=== PATIENT | female | born 1995 | race Caucasian/White ===

== ENCOUNTER 2023-07-11 14:14 | Outpatient (CLI) | payer OTHER, SELFPAY | END 2023-07-11 14:15 | disposition home or self-care (01) | LOC: NFLDUCREF 14:15 | PROVIDERS: Visit Provider Nurse Practitioner | DX: M54.50 Low back pain, unspecified (principal) | CPT/HCPCS: 85651 ==

== ENCOUNTER 2023-08-31 10:00 | Outpatient (RCR) | payer OTHER, SELFPAY ==
--- NOTE | 2023-07-25 11:15 | PT.OPEX ---
PT [place] [facility] Eval PT [facility] Out[facility] Eval Start: 07/25/23 09:56 Freq: Status: Active Protocol: Document 07/25/23 09:57 CRP (Rec: 07/25/23 11:12 CRP [id number]) E-signed By David Chambers PT Physical Therapy Outpatient Evaluation Insurance Information Insurance Name [facility] Medical Diagnosis Back Pain Referring MD Janice Ordoñez AIR ANALYSIS ENGINEERING TECHNICIAN Subjective Subjective 2-3 weeks had a back flare. Was working out and doing a lot of twisting and bending. After workout L lower back strain. Got worse and the next day was shifted. Thinks she was shifted to the R. No LE pain. Pain was very localized at the L lower back. Had one other episode about a year ago. Also after working out. Last time she felt shifted was over a week ago. When bad standing was the worse. Sitting was the best. No numbness or tingling . Sleep is affected. Is normally a side sleeper and this does feel a little more aggravated. On back is better but she cannot stay there. Almost no pain now. Pain Comments 07/13 Current Work Status Patient Registration Rep Preferred Name Velvet Objective Range of Motion Trunk ROM FLex WNL - reverse rhythm on coming back to neutral Ext mod dec R SB min dec L SB min/mod dec Hip ROM shows mild restriction R ER. All other testing WNL. Strength L grt toe 4/5. L hip abd 4+/5. All other myotome testing 5/ 5. Palpation Increased L sided lumbar erector spinae tone noted. Posture Mildly flattened lumbar lordosis in standing and sitting Other/Pertinent Objective SLR testing negative bilat Quadruped testing shows mild restriction into controlled lumbar ext. Does not get to full ROM. Assessment Assessment/Impression Pt presents to the clinic with a recent lumbar strain injury related to repetitive rotation and flexion. Pt shows ongoing lumbar dysfunction with loss of lumbar extension and L SB. With this she shows some signs of neural irritability and poor lumbopelvic control. Skilled PT is necessary to safely incorporate ther ex, nm kae, ther act and pt education to decrease pain and improve functional mobility. Primary Functional Limitations Exercise Bending Lifting Plan of Care Rehabilitation Potential Excellent Physical Therapy Goals 1. Pt will be 100% independent with HEP in 6 weeks. 2. Pt will complete all household tasks without pain in 8 weeks. 3. Pt will sleep through the night without c/o in 8 weeks. 4. Pt will return to full workout without c.o in 12 weeks. Coordination/Communication With Referral Source Treatment Plan/Direct Interventions Self-Care/Home Management, Therapeutic Activities, Therapeutic Exercises Frequency/Duration 1x/wk down to PRN x 12 weeks Patient Will Be Discharged From Therapy Completion of LTG(s),Skills Plateau,Independent w/HEP, Independently Progressing Evaluation Billing Untimed Code Treatment Minutes 30 Complexity Moderate Certification Information Physician Comment/Change : Physician NPI Number #
== END 2023-12-29 23:59 | disposition home or self-care (01) ==
PROVIDERS: PCP Nurse Practitioner; Visit Provider Nurse Practitioner
DX: M54.9 Dorsalgia, unspecified (principal); Z51.89 Encounter for other specified aftercare
CPT/HCPCS: 97110; 97140; 97162

== ENCOUNTER 2024-03-05 11:13 | Outpatient (CLI) | payer OTHER, SELFPAY | END 2024-03-05 11:14 | disposition home or self-care (01) | LOC: NFLDREF 16:54 | PROVIDERS: PCP Nurse Practitioner; Referring Provider Nurse Practitioner; Visit Provider Nurse Practitioner Family | DX: Z32.01 Encounter for pregnancy test, result positive (principal) | CPT/HCPCS: 84702 ==

== ENCOUNTER 2024-03-28 07:00 | Outpatient (CLI) | payer OTHER, SELFPAY ==
--- NOTE | 2024-03-28 07:15 | CRLHL7_ITS ---
For Patients: As a result of the Century Cures Act, medical imaging exams and procedure reports are released immediately into your electronic medical record. You may view this report before your referring provider. If you have questions, please contact your health care provider. INDICATION: First trimester dating and viability. TECHNIQUE: Ultrasound OB pelvis transabdominal and transvaginal. Real-time mcfadden-scale imaging of the pelvis was performed. COMPARISON: None. FINDINGS: Intrauterine gestation: Single. heart activity (bpm): 171. [place]-rump length: 1.5 cm. Estimated ultrasound age: 8 weeks 0 days. TIFFANIE by ultrasound: 11/07/2024. Yolk sac: Normal. Perigestational hemorrhage: None. Ovaries and adnexa: Unremarkable. Suspicious pelvic fluid collections: None. IMPRESSION: [place] intrauterine with cardiac activity. Estimated gestational age 8 weeks 0 days by LMP concordant with CRL. Normal ovaries. Dictated by Kaylee Kent MD @ 03/29/2024 7:59:42 AM (Electronically Signed)
== END 2024-03-28 07:01 | disposition home or self-care (01) ==
LOC: US 07:01
PROVIDERS: PCP Physician Assistant; Visit Provider Physician Assistant
DX: Z34.91 Encounter for supervision of normal pregnancy, unspecified, first trimester (principal); Z3A.08 8 weeks gestation of pregnancy
CPT/HCPCS: 76817

== ENCOUNTER 2024-03-28 08:49 | Outpatient (CLI) | payer OTHER, SELFPAY | END 2024-03-28 08:50 | disposition home or self-care (01) | PROVIDERS: PCP Physician Assistant; Visit Provider Registered Nurse | DX: Z34.91 Encounter for supervision of normal pregnancy, unspecified, first trimester (principal); Z3A.08 8 weeks gestation of pregnancy | CPT/HCPCS: 82565; 82570; 84156; 84450; 84460; 84520; 86592; 86703; 86704; 86706; 86762; 86787; 86803; 86850; 86900; 86901; 87086; 87340 ==

== ENCOUNTER 2024-04-02 11:16 | Outpatient (CLI) | payer OTHER, SELFPAY | END 2024-04-02 11:17 | disposition home or self-care (01) | LOC: NFLDREF 04-04 14:26 | PROVIDERS: PCP Physician Assistant; Referring Provider Physician Assistant; Visit Provider Registered Nurse | DX: O16.1 Unspecified maternal hypertension, first trimester (principal) | CPT/HCPCS: 82570; 84156 ==

== ENCOUNTER 2024-05-06 14:43 | Inpatient (IN) | payer OTHER, SELFPAY ==
[2024-05-06] VITALS (27 sets, daily range): BP systolic 113–154; BP diastolic 57–84; PULSE 80–142; RESP 14–20; TEMP 36.6–37.3; O2SAT 94–100; BMI 23.8
--- NOTE | 2024-05-06 15:08 | CRLHL7_ITS ---
For Patients: As a result of the Century Cures Act, medical imaging exams and procedure reports are released immediately into your electronic medical record. You may view this report before your referring provider. If you have questions, please contact your health care provider. INDICATION: Evaluate anatomy. COMPARISON: Obstetric ultrasound report from 03/29/2024 TECHNIQUE: First trimester obstetric ultrasound, transabdominal approach, utilizing grayscale and color Doppler as needed. FINDINGS: Sonographic imaging demonstrates a single living intrauterine gestation. The crown-rump length measures 8.5 centimeters consistent with a 14 week and 3 day gestation with estimated delivery date of 11/01/2024. The fetus has a regular cardiac rate of 173 beats per minute. The fetus has a cephalic orientation. Posterior fundal placenta without evidence of placenta previa or abruption. Minimal amniotic fluid. The head is at the level of the internal cervical os/just within the endocervical canal; however, the cervix is not fully open. The bilateral ovaries are not visualized. No suspicious adnexal lesions. No free fluid. IMPRESSION: 1. Single living intrauterine gestation in cephalic position with heart rate 173. 2. Ultrasound gestational age 14 weeks and 3 days with sonographic due date 11/01/2024. 3. The head is at the level of the internal cervical os/just within the endocervical canal; however, the cervix is not fully open. Findings are concerning for threatened miscarriage. Preliminary report was provided by the patient`s fiber optic central office installer to Drs. Apple and Farrukh at 1630 hours on 05/06/2024. Dictated by Palomo Muller MD @ 05/06/2024 5:06:18 PM (Electronically Signed)
--- NOTE | 2024-05-06 15:15 | ED.GENADULT ---
HPI - General Adult General Date Seen: 05/06/24 Chief complaint: OB/Uterine Contractions Stated complaint: , spotting and cramping and fever Time Seen by Provider: 05/06/24 14:54 Source: patient and RN notes reviewed Mode of arrival: ambulatory Limitations: no limitations History of Present Illness HPI narrative: Patient is a 29-year-old , 13 weeks 5 days by prior ultrasound, who says for the past several days she has been having some pelvic cramping associated with light spotting which has been pinkish to brownish. Today, she developed a fever up to 101, she says that the abdominal pain actually stopped a couple of hours ago when the fever started, but she noted that she was significantly tachycardic at home. She works as a PA in [employer], says she had access to a Doppler so she took that home and has been checking on baby's heart rate which has been present but was tachycardic this afternoon as well. She denies urinary symptoms, vomiting, diarrhea, cough, sore throat or other respiratory symptoms. has, prior to this, been uneventful. Denies other medical history or medications aside from vitamins. No substances. Related Data Home Medications ?Medication ?Instructions ?Recorded ?Confirmed docosahexaenoic acid 200 mg mg PO 03/28/24 04/25/24 capsule ( DHA) 05/06/24 Allergies Allergy/AdvReac Type Severity Reaction Status Date / Time Sulfa (Sulfonamide Allergy Verified 04/25/24 08:54 Antibiotics) Review of Systems Status of ROS: Reports: 10 or more systems reviewed and unremarkable except as noted in History and below [facility] Medical History History of abnormal cervical Pap smear ?Z87.42 - Personal history of other diseases of the female genital tract (ICD-10) Social History Narrative: 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 What is your current living situation?: I presently have a place to live Problems where you live: no known problems In the past 12 months, utilities in danger of being shut off: no In past 12 months, lack of transportation kept you from medical appts, meetings, work, or getting things needed for daily living: no In the past 12 mos, have been you worried that your food would run out before you had money to buy more?: never true In the past 12 mos, the food you bought just didn't last and you didn't have money to buy more?: never true How often does anyone, including family, friends and others, physically hurt you: never How often does anyone, including family, friends and others, insult or talk down to you: never How often does anyone, including family, friends and others, threaten you with harm: never How often does anyone, including family, friends and others, scream or curse at you: never Little interest or pleasure in doing things: not at all Feeling down, depressed, or hopeless: not at all Exam Narrative: Exam Narrative: Vital signs as noted above. In general, an alert, well-appearing patient. Head: Normocephalic, atraumatic. Eyes: Pupils are equal reactive. Extraocular movements are full. Conjunctivae are normal. ENT: Mucous membranes are moist. Throat is normal. Neck: Supple without lymphadenopathy. Heart: Regular rate and rhythm. No murmur or rub. Lungs: Clear bilaterally. No increased work of breathing, crackles or wheezes. Abdomen: Soft, gravid. Some pelvic tenderness is noted, no rebound guarding or rigidity. Pelvic exam is deferred. Extremities: Well perfused. No edema. No calf tenderness. Pulses intact. Neurologic: Patient is alert and oriented to person and place. Speech is fluent. Face is symmetric. Moves all extremities equally. Affect: Normal. Skin: Warm and dry. Well perfused. Const: Vital Signs, click to edit/add: Vital Signs - 24 hr 05/06/24 14:47 05/06/24 16:57 Temperature 98.7 F Pulse Rate 133 H Pulse Rate [Pulse Oximeter] 141 H Respiratory Rate 20 Blood Pressure [Ri ght Upper Arm] 154/84 H Pulse Oximetry 98 98 Oxygen Delivery Me thod Room Air Documenting provider has reviewed patient's vital signs: yes Course Course ED Course: Patient remains tachycardic here, will do an EKG just to confirm that this is sinus tachycardia. Her blood pressure is elevated but she says that is always elevated when she is at a healthcare facility, but normal at home. She attributes this to anxiety. Will check a viral swab, but given her recent pelvic pain and spotting, I think it is reasonable to do some blood work as well and look for other causes for her fever such as urinary tract infection, uterine infection, etc. as well as give some IV fluids. I have also ordered a formal ultrasound to evaluate for possible causes of cramping and spotting. Initial evaluation here revealed an elevated white blood cell count 19.4 with 92% neutrophils. Her sodium is 132, potassium is 2.9. Remainder of the metabolic panel is normal. Lactate is normal at 1.6, procalcitonin elevated at 1.9 and CRP is 13.6. UA notable for 1+ blood trace leukocytes, 2-5 red cells and 5-10 white blood cells. Viral swab is negative. A bit after initial evaluation, patient had a myers of fluid loss while lying in bed, she said she felt like she was urinating but knew that she was not. I did not see this in person, was reported that it was pinkish watery fluid, fairly large amount. I looked with a bedside ultrasound as formal ultrasound was still pending at that time. There appeared to be fairly minimal amount of amniotic fluid, cardiac activity was seen however. I then discussed her care with Dr. Chadwick, and at her recommendation did a sterile speculum exam. She had a moderate amount of cloudy fluid pooling in the vaginal vault, fern test which I did myself was positive for amniotic fluid. Formal ultrasound pre limb notes positive cardiac activity but head of the baby is down near or just into the cervix, and there is minimal amniotic fluid. I have discussed all this with the patient and her , have discussed this is nonviable at this time, and she is showing signs of systemic infection. Dr. Chadwick will come in and evaluate her as well, likely emergent D and C. has super notified. In the meantime, I have sent a culture of the amniotic fluid, blood cultures will be drawn and I would have ordered Zosyn for her. I have also ordered IV potassium replacement, and additional IV fluids. Vital Signs Vital signs: Initial Vital Signs Temperature 98.7 F 05/06/24 14:47 Temperature Source Temporal Artery Scan 05/06/24 14:47 Pulse Rate 141 H 05/06/24 14:47 Pulse Rhythm Regular 05/06/24 14:47 Respiratory Rate 20 05/06/24 14:47 Blood Pressure 154/84 H 05/06/24 14:47 Blood Pressure Mean 107 H 05/06/24 14:47 Blood Pressure Position Sitting 05/06/24 14:47 Pulse Oximetry 98 05/06/24 14:47 Oxygen Delivery Method Room Air 05/06/24 14:47 Vital Signs Temperature 98.7 F 05/06/24 14:47 Pulse Rate 141 H 05/06/24 14:47 Respiratory Rate 20 05/06/24 14:47 Blood Pressure 154/84 H 05/06/24 14:47 Pulse Oximetry 98 05/06/24 14:47 Oxygen Delivery Method Room Air 05/06/24 14:47 Temperature 98.7 F 05/06/24 14:47 Pulse Rate 133 H 05/06/24 16:57 Respiratory Rate 20 05/06/24 14:47 Blood Pressure 154/84 H 05/06/24 14:47 Pulse Oximetry 98 05/06/24 16:57 Oxygen Delivery Method Room Air 05/06/24 14:47 Medications Administered Medications: Discontinued Medications Generic Name Dose Route Start Last Admin Trade Name Sanketq PRN Reason Stop Dose Admin Sodium Chloride 500 mls @ 500 mls/hr 05/06/24 15:07 05/06/24 16:54 0.9 % Sodium Chloride 500 Ml IV 05/06/24 16:06 Infused .Q1H ONE Infusion Medical Decision Making Lab Data Labs: Lab Results 05/06/24 05/06/24 Range/Units 15:17 15:20 WBC 19.42 H (4.50-11.00) K/uL RBC 4.23 (4.00-5.20) m/uL Hgb 13.3 (12.0-16.0) gm/dL Hct 37.9 (33.0-51.0) % MCV 90 (80-100) fL MCH 31 (26-34) pg MCHC 35 (32-36) gm/dL RDW Coeff of Marco A 11.7 (11.5-15.5) % Plt Count 176 (140-440) K/uL Neut % (Auto) 92.1 H (42.0-72.0) % Lymph % (Auto) 2.8 L (20-44) % [place] % (Auto) 4.1 (0.0-11.0) % Eos % (Auto) 0.1 (0.0-7.0) % Baso % (Auto) 0.1 (0.0-3.0) % Neut # (Auto) 17.90 H (1.7-7.0) K/uL Lymph # (Auto) 0.50 L (0.90-2.90) K/uL [place] # (Auto) 0.80 (0.00-0.90) K/UL Eos # (Auto) 0.00 (0.00-0.50) K/uL Baso # (Auto) 0.00 (0.00-0.30) K/uL Abs Immat Gran (auto) 0.20 (0.00-0.30) K/uL Imm/Tot Granulo (auto) 0.8 % Sodium 132 L (135-149) mmol/L Potassium 2.9 L* (3.6-5.1) mmol/L Chloride 103 (96-114) mmol/L Carbon Dioxide 20 (20-32) mmol/L Anion Gap 9 (7-15) mEq/L BUN 5 (5-24) mg/dL Creatinine 0.5 (0.5-1.5) mg/dL Estimated Creat Clear 150.73 Estimated GFR 131 ml/min Glucose 93 (60-115) mg/dL Lactate 1.6 (0.5-1.9) mmol/L Calcium 8.9 (8.4-10.6) mg/dL Total Bilirubin 1.0 (0.1-1.5) mg/dL Direct Bilirubin 0.2 (0.0-0.5) mg/dL AST 20 (12-35) U/L ALT 15 (4-35) U/L Alkaline Phosphatase 78 (40-150) U/L C-Reactive Protein 13.6 H (0.5-1.0) mg/dL Total Protein 6.9 (6.0-8.3) g/dL Albumin 4.1 (3.3-5.0) g/dL Procalcitonin 1.90 H (<0.50) ng/mL Urine Color Yellow (Yellow) Urine Appearance Clear (Clear) Urine pH 6.5 (5.0-8.5) Ur Specific [place] 1.010 (1.000-1.030) Urine Protein Negative (Negative) Urine Glucose (UA) Negative (Negative) Urine Ketones Negative (Negative) Urine Blood 1+ A (Negative) Urine Nitrite Negative (Negative) Urine Bilirubin Negative (Negative) Urine Urobilinogen 0.2 (0.2-1.0) Ur Leukocyte Esterase Trace A (Negative) Urine RBC 2-5 A (0-2) Urine WBC 5-10 A (0-5) Ur Squamous Epith Cells None (None-Few) Urine Bacteria None (None) SARS-CoV-2 (PCR) Negative SARS-CoV-2 (Negative) Influenza Type A (PCR) Negative PCR FLU A (Negative) Influenza Type B (PCR) Negative PCR FLU B (Negative) RSV (PCR) Negative PCR RSV (Negative) Discharge Plan Discharge Clinical Impression: Spontaneous with sepsis Condition: Unchanged Prescriptions: No Action DHA 200 mg capsule PO Follow Up/Referrals: Provider,Not a Local [Primary Care Provider] -
[2024-05-06 15:22] LABS: Lactate Sepsis w/Reflex* 1.6 mmol/L (0.5-1.9)
[2024-05-06 15:26] LABS: Basophils Percent Auto 0.1 % (0.0-3.0); Eosinophils Percent Auto 0.1 % (0.0-7.0); Hematocrit 37.9 % (33.0-51.0); Hemoglobin* 13.3 gm/dL (12.0-16.0); Immature Granulocytes Pct Auto 0.8 %; Lymphocytes Percent Auto 2.8 % (20-44); Mean Corpuscular HGB Conc 35 gm/dL (32-36); Mean Corpuscular Hemoglobin 31 pg (26-34); Mean Corpuscular Volume 90 fL (80-100); Monocytes Percent Auto 4.1 % (0.0-11.0); Neutrophils Percent Auto 92.1 % (42.0-72.0); Platelet Count* 176 K/uL (140-440); RDW Coefficient of Variation % 11.7 % (11.5-15.5); Red Blood Count 4.23 m/uL (4.00-5.20); White Blood Count* 19.42 K/uL (4.50-11.00)
[2024-05-06 15:29] LABS: Slide Review Reflex No
[2024-05-06] MEDS: 0.9 % SODIUM CHLORIDE 500 ML 500 ML IV ×2 (15:30→17:03)
[2024-05-06 15:32] LABS: Appearance Urine Clear (Clear); Bilirubin Urine Negative (Negative); Blood Urine 1+ (Negative); Color Urine Yellow (Yellow); Glucose Urine Negative (Negative); Ketones Urine Negative (Negative); Leukocyte Esterase Urine Trace (Negative); Nitrite Urine Negative (Negative); Protein Urine Negative (Negative); Urobilinogen Urine 0.2 (0.2-1.0); pH Urine 6.5 (5.0-8.5)
[2024-05-06 15:38] LABS: Albumin* 4.1 g/dL (3.3-5.0); Chloride* 103 mmol/L (96-114)
[2024-05-06 15:39] LABS: Sodium* 132 mmol/L (135-149)
[2024-05-06 15:41] LABS: Creatinine* 0.5 mg/dL (0.5-1.5); Est. Creatinine Clearance* 150.73; Estimated Glomerular Filt Rate 131 ml/min
[2024-05-06 15:42] LABS: Alanine Aminotransferase* 15 U/L (4-35); Alkaline Phosphatase* 78 U/L (40-150); Anion Gap 9 mEq/L (7-15); Aspartate Amino Transferase* 20 U/L (12-35); Bilirubin Direct* 0.2 mg/dL (0.0-0.5); Blood Urea Nitrogen* 5 mg/dL (5-24); Carbon Dioxide* 20 mmol/L (20-32); Glucose* 93 mg/dL (60-115); Total Protein* 6.9 g/dL (6.0-8.3)
[2024-05-06 15:43] LABS: Calcium* 8.9 mg/dL (8.4-10.6)
[2024-05-06 15:44] LABS: Potassium* 2.9 mmol/L (3.6-5.1)
[2024-05-06 15:59] LABS: C Reactive Protein* 13.6 mg/dL (0.5-1.0)
[2024-05-06 16:09] LABS: PCR FLU A Negative PCR FLU A (Negative); PCR FLU B Negative PCR FLU B (Negative); PCR RSV Negative PCR RSV (Negative); SARS PCR* Negative SARS-CoV-2 (Negative)
[2024-05-06] MEDS: POTASSIUM CHLORIDE 10 MEQ/100 ML PIGGYBACK 100 MEQ IVPB (17:02)
[2024-05-06] MEDS: PIPERACILLIN/TAZOBACTAM 3.375 GM in 0.9 % SODIUM CHLORIDE Mini-bag 100 ML IVPB ×2 (17:03→23:35)
--- NOTE | 2024-05-06 17:14 | PM.GYNCN1 ---
SUPERINTENDENT OIL FIELD DRILLING - CN: HPI Data of Consult Time Seen by Provider: 17:00 Date Seen: 05/06/24 Patient: [facility] Patient Consult date: 05/06/24 Requesting Physician: Dr. Apple Primary Care Provider: Not a Local Provider Consult Narrative Narrative: Velvet Zimmerman is a 29 year old female who is currently 13 4/7 weeks gestation. She presented to the emergency department this afternoon complaining of severe low abdominal cramping of two days duration associated with scant brown spotting, and then developed fever to 101? F and tachycardia this afternoon. She had been monitoring heart tones with a doptones, and had contacted me through the triage line twice since last evening. Following her arrival to the emergency department, she had two large gushes of fluid from the vagina. Sterile speculum examination revealed moderate amount of cloudy fluid pooling in the vaginal vault, and fern test done by Dr. Apple was positive for amniotic fluid. Pelvic ultrasound showed very little fluid around the fetus, with head just within the internal cervical os, consistent with miscarriage in process. Patient was found to have an elevated white blood cell count with left shift. 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. What is your current living situation?: I presently have a place to live Problems where you live: no known problems In the past 12 months, utilities in danger of being shut off: no In past 12 months, lack of transportation kept you from medical appts, meetings, work, or getting things needed for daily living: no In the past 12 mos, have been you worried that your food would run out before you had money to buy more?: never true In the past 12 mos, the food you bought just didn't last and you didn't have money to buy more?: never true How often does anyone, including family, friends and others, physically hurt you: never How often does anyone, including family, friends and others, insult or talk down to you: never How often does anyone, including family, friends and others, threaten you with harm: never How often does anyone, including family, friends and others, scream or curse at you: never Little interest or pleasure in doing things: not at all Feeling down, depressed, or hopeless: not at all Meds Home Medications and Allergies Home Medications ?Medication ?Instructions ?Recorded ?Confirmed ?Type docosahexaenoic acid 200 mg mg PO 03/28/24 04/25/24 History capsule ( DHA) 05/06/24 History Allergies Allergy/AdvReac Type Severity Reaction Status Date / Time Sulfa (Sulfonamide Allergy Verified 04/25/24 08:54 Antibiotics) SUPERINTENDENT OIL FIELD DRILLING - Exam Physical Exam: Vital signs: Temp Pulse Resp BP Pulse Ox O2 Del Method 98.7 F 133 H 20 154/84 H 98 Room Air 05/06/24 14:47 05/06/24 16:57 05/06/24 14:47 05/06/24 14:47 05/06/24 16:57 05/06/24 14:47 Constitutional: Constitutional: no acute distress Routine HEENT Exam: Head: Present normal inspection Routine Respiratory Exam: Respiratory: Present CTA bilaterally Routine Abdominal Exam: Abdominal: Present soft and tenderness (Mild mid low abdomen); Absent guarding or rebound Routine Extremities Exam: Extremities: Absent pedal edema or tenderness SUPERINTENDENT OIL FIELD DRILLING - Results Labs Labs: Short CBC 05/06/24 Range/Units 15:17 WBC 19.42 H (4.50-11.00) K/uL Hgb 13.3 (12.0-16.0) gm/dL Hct 37.9 (33.0-51.0) % Plt Count 176 (140-440) K/uL BMP 05/06/24 15:17 Sodium 132 L Potassium 2.9 L* Chloride 103 Carbon Dioxide 20 BUN 5 Creatinine 0.5 Glucose 93 Calcium 8.9 Liver Function 05/06/24 Range/Units 15:17 Total Bilirubin 1.0 (0.1-1.5) mg/dL Direct Bilirubin 0.2 (0.0-0.5) mg/dL AST 20 (12-35) U/L ALT 15 (4-35) U/L Alkaline Phosphatase 78 (40-150) U/L Albumin 4.1 (3.3-5.0) g/dL Urine 11/03/24 Range/Units 15:20 Urine Color Yellow (Yellow) Urine Appearance Clear (Clear) Urine pH 6.5 (5.0-8.5) Ur Specific [place] 1.010 (1.000-1.030) Urine Protein Negative (Negative) Urine Glucose (UA) Negative (Negative) Assessment and Plan Assessment and plan (1) Spontaneous with sepsis: Status: Acute Plan Unfortunately, at this time there is no hope of saving the fetus in the setting of septic . Miscarriage is already in process. Because there is evidence of intrauterine infection, uterine evacuation is indicated as soon as possible. The patient and I reviewed the potential risks, including uterine perforation, hemorrhage, and septic shock. I spoke with Anesthesia, who recommends general anesthesia rather than monitored anesthesia care, to better protect the airway in the event of an emergency. We will initiate broad-spectrum antibiotics in the form of IV Zosyn and IV vancomycin preoperatively. Tranexamic acid 1000 mg will also be administered preoperatively to reduce the risk of hemorrhage. I would recommend inpatient admission following surgery until she has been afebrile for 24-48 hours. The patient's questions were answered. Informed consent for suction curettage under ultrasound guidance was obtained. Total Time Spent Total Time Spent: 50 minutes
[2024-05-06] MEDS: VANCOMYCIN 1 GM/200 ML 1 GM/200 ML PIGGYBACK IVPB (17:53)
[2024-05-06] MEDS: LACTATED RINGERS 1000 ML 1,000 ML 75 ML IV ×2 (18:10→19:50)
[2024-05-06] MEDS: miSOPROStoL 800 MCG/4 TABLET PR (18:45)
--- NOTE | 2024-05-06 19:23 | W.PM.GYNPROC ---
Procedure Note Date of procedure: 05/06/24 Will [facility] bill your pro fee for this procedure?: Yes Pre-op diagnosis: Septic at 13 4/7 weeks gestation. Post-op diagnosis: Same. Procedure: Suction curettage under ultrasound guidance. Anesthesia: GETA Complications: None. Surgeon: Micaela Chadwick MD Estimated blood loss (mL): 660 Pathology: specimen obtained, sent to pathology (Products of conception including remains, placenta, umbilical cord, membranes) Condition: stable Disposition: PACU Findings: On speculum examination under anesthesia, toshia pus was losing about of the cervical opening. Cervix was already passively dilated it least 14 mm. Procedure Description: After obtaining informed consent, the patient was taken to the operating room where general anesthesia was obtained without difficulty. She was prepared and draped in the normal, sterile fashion in the dorsal lithotomy position. 1000 mg of IV tranexamic acid was administered intravenously. She had previously received Zosyn 4.75 and vancomycin 1 g IV was running. An open-sided bivalve speculum was placed into the vagina and the cervix easily visualized. The anterior lip of the cervix was grasped with a single-tooth tenaculum for traction. The cervix was passively dilated using Hegar dilators to a # 15 dilator under ultrasound guidance. A 14 mm rigid, curved suction cannula was advanced through the cervical os into the uterine cavity. Gentle suction was applied, and the uterine lining gently curetted. Blood and clots were removed, but and placental tissue remained within the uterine cavity. The suction cannula was removed. A Bierer forceps was then advanced into the uterine cavity under ultrasound guidance and used to remove the placenta, umbilical cord, and fetus. remains were inspected and all accounted for except for one femur, which was thought to be in the suction cannula. There was brisk active bleeding noted. This was controlled with bimanual massage, as well as medications including Methergine 0.2 mg IM, misoprostol 800 mcg [place], and Hemabate 250 mg. Brisk bleeding continued. I attempted to place a Corine under ultrasound guidance, but the uterus was too small to accommodate the device. A Bakri balloon was then placed under ultrasound guidance, inflated with 100 mL. This provided good hemostasis. The tenaculum and speculum were then removed. The patient tolerated the procedure well. Sponge, lap, and needle counts were reported as correct x2. The patient was taken to the recovery room awake and in stable condition.
--- NOTE | 2024-05-06 19:27 | P.ANES_ITS ---
Anesthesia Charges Start Date/Time Anesthesia Start Date: 05/06/24 Anesthesia Start Time: 18:10 Stop Date/Time Anesthesia Stop Date: 05/06/24 Anesthesia Stop Time: 19:20 Summary Emergency: [facility]
[2024-05-06] MEDS: ONDANSETRON 2 MG/ML inj 4 MG IVP (19:30)
[2024-05-06] MEDS: KETOROLAC 30 MG/ML inj IVP (19:40)
[2024-05-06] MEDS: fentaNYL 100 MCG/2 ML inj 50 MCG IVP (19:44)
[2024-05-06 20:41] LABS: Basophils Percent Auto 0.1 % (0.0-3.0); Hematocrit 34.8 % (33.0-51.0); Hemoglobin* 11.8 gm/dL (12.0-16.0); Immature Granulocytes Pct Auto 0.8 %; Lymphocytes Percent Auto 2.1 % (20-44); Mean Corpuscular HGB Conc 34 gm/dL (32-36); Mean Corpuscular Hemoglobin 31 pg (26-34); Mean Corpuscular Volume 92 fL (80-100); Platelet Count* 163 K/uL (140-440); RDW Coefficient of Variation % 11.8 % (11.5-15.5); White Blood Count* 24.96 K/uL (4.50-11.00)
[2024-05-06 20:45] LABS: Slide Review Reflex No
[2024-05-06 21:00] LABS: INR 1.13 (0.91-1.10); Partial Thromboplastin Time* 28 Seconds (23-33); Prothrombin Time 15.2 Seconds
[2024-05-06 21:01] LABS: Fibrinogen* 508 mg/dL (200-450)
[2024-05-06] MEDS: OXYCODONE 5 MG TABLET PO (21:58)
[2024-05-06] MEDS: LORazepam 0.5 MG TABLET PO (22:24)
[2024-05-07] VITALS (9 sets, daily range): BP systolic 99–123; BP diastolic 49–66; PULSE 73–98; RESP 16; TEMP 37.1–37.4; O2SAT 96–100
[2024-05-07] MEDS: KETOROLAC 30 MG/ML inj IVP ×2 (01:54→08:16)
[2024-05-07] MEDS: VANCOMYCIN 1 GM/200 ML 1 GM/200 ML PIGGYBACK IVPB ×3 (02:05→18:39)
[2024-05-07] MEDS: PIPERACILLIN/TAZOBACTAM 3.375 GM in 0.9 % SODIUM CHLORIDE Mini-bag 100 ML IVPB ×3 (05:33→17:37)
--- NOTE | 2024-05-07 06:17 | PC.NURSE ---
Pt arrived to floor at 2000. Awake and alert on arrival. Initially rating pain 4/10. Ice pack to abdomen. VSS and maintaining sats >95% on RA. Afebrile throughout shift. Pt reports intermittent cramping lasting a few seconds and as frequent as every 2 minutes. Rating that pain 7/10. See eMAR for interventions. Pain interventions were not helping. Pt then began to feel nauseous and proceeded to have a 200cc emesis. MD contacted and new orders placed. When technical document writer arrived back to room with ordered interventions she reported the pain and nausea had subsided and declined medications. Since then pt has been resting comfortably in bed and denying any pain. Up with SBA to bathroom. Tolerating well and voiding adequate amounts. SL. Pt now tolerating diet. Bakri in place and draining minimal amount of blood. at bedside overnight.
[2024-05-07 06:21] LABS: Hemoglobin* 11.4 gm/dL (12.0-16.0); Immature Granulocytes Pct Auto 0.4 %; Lymphocytes Percent Auto 2.5 % (20-44); Mean Corpuscular HGB Conc 34 gm/dL (32-36); Mean Corpuscular Hemoglobin 31 pg (26-34); Mean Corpuscular Volume 92 fL (80-100); Monocytes Percent Auto 2.8 % (0.0-11.0); Neutrophils Percent Auto 94.3 % (42.0-72.0); Platelet Count* 168 K/uL (140-440); RDW Coefficient of Variation % 12.2 % (11.5-15.5); Red Blood Count 3.68 m/uL (4.00-5.20); White Blood Count* 24.51 K/uL (4.50-11.00)
[2024-05-07 06:31] LABS: Fibrinogen* 544 mg/dL (200-450)
[2024-05-07 06:32] LABS: INR 1.15 (0.91-1.10); Partial Thromboplastin Time* 32 Seconds (23-33); Prothrombin Time 15.5 Seconds; Slide Review Reflex No
[2024-05-07 06:34] LABS: Chloride* 107 mmol/L (96-114)
[2024-05-07 06:35] LABS: Potassium* 3.7 mmol/L (3.6-5.1); Sodium* 135 mmol/L (135-149)
[2024-05-07 06:37] LABS: Creatinine* 0.5 mg/dL (0.5-1.5); Est. Creatinine Clearance* 150.73; Estimated Glomerular Filt Rate 131 ml/min
[2024-05-07 06:38] LABS: Anion Gap 8 mEq/L (7-15); Blood Urea Nitrogen* 4 mg/dL (5-24); Calcium* 8.6 mg/dL (8.4-10.6); Carbon Dioxide* 20 mmol/L (20-32); Glucose* 123 mg/dL (60-115)
--- NOTE | 2024-05-07 07:33 | PC.NURSE ---
Bakri removed at 0730 per MD
--- NOTE | 2024-05-07 09:04 | NUTR.NU ---
RDN with nutrition screen per protocol for . Not appropriate to see d/t spontaneous with sepsis. MST screen 0. No weight history, weight currently at 143lbs. BMI within normal range at 23.8kg/m2. RDN will reassess if needed.
[2024-05-07] MEDS: IBUPROFEN 600 MG TABLET PO (14:00)
--- NOTE | 2024-05-07 18:17 | PC.NURSE ---
PATIENT HAS REMAINED AFEBRILE. DENIES N/V. TOLERATING REGULAR DIET. THE BAKRI BALLOON WAS DC'D AT BEGINNING OF SHIFT PER MD ORDER. PATIENT HAS REPORTED MINIMAL BLOODY DRAINAGE THROUGHOUT THE SHIFT. THE CONSENT TO RELEASE REMAINS FOR THE MISCARRIED FETUS WAS SIGNED BY PATIENT AND [facility] WAS CONTACTED CHOICE FOR DISPOSITION FOLLOWING COMPLETION OF PATHOLOGY AT [facility]. PATIENT'S NAME AND PHONE NUMBER GIVEN TO [facility] AND THEY WILL CONTACT HER AFTER [facility] CONTACTS THEM.
--- NOTE | 2024-05-07 18:27 | PM.OBPNVD1 ---
OB - PN:Subj Subjective Time Seen by Provider: 09:00 Date Seen: 05/07/24 Narrative: Velvet is a 29 y/o gestation who presented with septic at 13 weeks, POD#1 from ultrasound-guided suction curettage. Her surgery was complicated by increased bleeding with an EBL of 600 mL. She was treated with 1 g of IV TXA, 0.2 mg of Methergine IM, 0.25 mg of Hemabate IM, misoprostol 800 mcg per rectum, and placement of a Bakri balloon infiltrated with 100 mL. Given no output overnight, I asked for Bakri balloon to be removed HARRISON. Her Bakri was removed around 7:30am. She is currently on IV vancomycin and Zosyn. Overnight patient had intermittent uterine that has significantly improved with removal of the Bakri. Her pain is well controlled. She is tolerating a regular diet. She is ambulating without difficulty. Vaginal bleeding is scant. She is urinating without persaud. Patient denies chest pain, SOB, n/v, dizziness. Overall, she endorse feeling generally better than she has been. She did get NIPT that hasn't resulted. Originally she had declined to know the sex on NIPT. However, given the clinical situation, she would like this sex to be added on to her NIPT. I will send a task to my clinic staff to help navigate this. Ideally, she would like to be discharged tomorrow to go vote! OB - PN: Obj Exam Physical Exam: Vital signs: Temp Pulse Resp BP Pulse Ox O2 Del Method 98.7 F 76 16 115/63 98 Room Air 05/07/24 16:15 05/07/24 16:15 05/07/24 16:15 05/07/24 16:15 05/07/24 16:15 05/07/24 16:15 Narrative: Physical exam: General: No acute distress Psych: Alert and oriented x4, full affect HEENT: Normocephalic, atraumatic Neck: No cervical adenopathy, no thyromegaly Heart: Regular rate and rhythm, no murmur rub or gallop Lungs: Clear to auscultation bilaterally Abdomen: Mild-moderate fundal tenderness. No rebound, guarding or distension. Skin: No lesions or rashes Lower extremities: No edema or erythema Pelvic exam: Scant blood on pad OB - PN: Obj Data Labs Labs: Laboratory Results - last 24 hr 05/06/24 05/06/24 05/07/24 17:24 20:30 06:07 WBC 24.96 H 24.51 H RBC 3.80 L 3.68 L Hgb 11.8 L 11.4 L Hct 34.8 34.0 MCV 92 92 MCH 31 31 MCHC 34 34 RDW Coeff of Marco A 11.8 12.2 Plt Count 163 168 Neut % (Auto) 95.0 H 94.3 H Lymph % (Auto) 2.1 L 2.5 L [place] % (Auto) 2.0 2.8 Eos % (Auto) 0.0 0.0 Baso % (Auto) 0.1 0.0 Neut # (Auto) 23.70 H 23.10 H Lymph # (Auto) 0.50 L 0.60 L [place] # (Auto) 0.50 0.70 Eos # (Auto) 0.00 0.00 Baso # (Auto) 0.00 0.00 Abs Immat Gran (auto) 0.20 0.10 Imm/Tot Granulo (auto) 0.8 0.4 INR 1.13 H 1.15 H APTT 28 32 Fibrinogen 508 H 544 H Sodium 135 Potassium 3.7 Chloride 107 Carbon Dioxide 20 Anion Gap 8 BUN 4 L Creatinine 0.5 Estimated Creat Clear 150.73 Estimated GFR 131 Glucose 123 H Calcium 8.6 Blood Type A Positive Antibody Screen NEGATIVE OB - PN: A/P Delivery Assessment and Plan (1) Spontaneous with sepsis: Status: Acute Plan - Pt has been afebrile since admission - IV antibiotic for 24 hours after surgery - Discussed possible need for PO antibiotic depending on physical exam and labs tomorrow - Will fill out cremation form today - She is aware that all her cultures are still pending - Schedule 2 weeks postop visit with Dr. Chadwick
[2024-05-08 02:50] VITALS: BP 109/61; PULSE 84; RESP 16; TEMP 36.9; O2SAT 98
[2024-05-08 06:55] LABS: Basophils Absolute Auto 0.03 K/uL (0.00-0.30); Basophils Percent Auto 0.3 % (0.0-3.0); Eosinophils Absolute Auto 0.04 K/uL (0.00-0.50); Eosinophils Percent Auto 0.4 % (0.0-7.0); Hematocrit 27.8 % (33.0-51.0); Hemoglobin* 9.3 gm/dL (12.0-16.0); Lymphocytes Percent Auto 11.9 % (20-44); Mean Corpuscular HGB Conc 34 gm/dL (32-36); Mean Corpuscular Hemoglobin 31 pg (26-34); Mean Corpuscular Volume 94 fL (80-100); Monocytes Percent Auto 7.1 % (0.0-11.0); Neutrophils Percent Auto 79.3 % (42.0-72.0); Platelet Count* 149 K/uL (140-440); RDW Coefficient of Variation % 12.2 % (11.5-15.5); Red Blood Count 2.97 m/uL (4.00-5.20); White Blood Count* 10.07 K/uL (4.50-11.00)
[2024-05-08 06:56] LABS: Slide Review Reflex No
[2024-05-08 07:00] VITALS: BP 119/67; PULSE 82; RESP 14; TEMP 37.1; O2SAT 98
[2024-05-08 07:08] LABS: INR 1.05 (0.91-1.10); Prothrombin Time 14.4 Seconds
[2024-05-08 07:09] LABS: Partial Thromboplastin Time* 29 Seconds (23-33)
[2024-05-08 07:10] LABS: Fibrinogen* 450 mg/dL (200-450)
--- NOTE | 2024-05-08 07:34 | PC.NURSE ---
Pt alert and oriented x3. Afebrile. Pt denies pain. Pt is up ad monica in room, voiding, and tolerating a regular diet. Pt slept throughout most of night. ?
--- NOTE | 2024-05-08 09:54 | PC.NURSE ---
Pt discharged @ 0952 via ambulation, accompanied by spouse. Back to home. IV removed. Discharge forms signed. No belonging form signed upon admission.
--- NOTE | 2024-05-08 10:06 | P.DS_ITS ---
DS: Providers Provider Date Seen: 05/08/24 Date of admission: 05/06/24 17:25 Primary care physician: Not a Local Provider Admitting Clinician: Micaela Chadwick MD Attending Physician on discharge: Starla Llanos MD Date of Discharge: 05/08/24 DS: Diagnosis Discharge Diagnosis (1) Spontaneous with sepsis: Status: Acute GATE WATCHMAN-Discharge Summary Hospital Course Hospital Course Narrative: Patient is a 21-year-old woman admitted on 06/02/2024 for treatment of septic . She presented with fever and pelvic pain, and had rupture of membranes in the emergency room, notable for finding of pus in the amniotic fluid. She had suction curettage for indication of septic on that day. Intraoperative findings were notable for toshia pus issuing from cervical os. Cervix was noted to be dilated at beginning of procedure. Procedure was performed under ultrasound guidance. Procedure was complicated by intraoperative hemorrhage of 660 mL, which was managed with multiple uterotonics and placement of a Bakri balloon. This was removed the following morning. Postoperatively, she was treated with IV vancomycin and Zosyn. She remained afebrile throughout her postoperative course. She did have some uterine tenderness initially, but this dissipated. Likewise, her white blood cell count has normalized as of this morning. Today, on postoperative day 2, she is feeling much better. She denies any pain. No heavy bleeding. She is anxious for discharge. Of note, blood cultures from admission show Gram-negative rods that are as of yet unspeciated. Placental culture shows Gram-positive rods that are also unspeciated at this time. Vitals have been stable. She has remained afebrile. Today, on postoperative day 2, she reports the pain is well controlled. She has been able to ambulate Without difficulty. She is tolerating regular diet. She has had bowel movements but does feel bloated. Time Spent with Patient Time attestation: Total time spent providing and/or coordinating discharge services: GATE WATCHMAN - Exam Physical Exam: Vital signs: Temp Pulse Resp BP Pulse Ox O2 Del Method 98.8 F 82 14 119/67 98 Room Air 05/08/24 07:00 05/08/24 07:00 05/08/24 07:00 05/08/24 07:00 05/08/24 07:00 05/08/24 07:00 Narrative: General: Pleasant, no acute distress Heart: Regular rate and rhythm, no murmur or gallop Lungs: Clear to auscultation bilaterally Abdomen: Soft, slightly tender around umbilicus, nontender in pelvis, fundus well below umbilicus Lower extremities: No edema or erythema GATE WATCHMAN - DS: Data Data Completed and Pending Labs on day of discharge: Labs from last 24 hours 05/08/24 06:19 WBC 10.07 RBC 2.97 L Hgb 9.3 L Hct 27.8 L MCV 94 MCH 31 MCHC 34 RDW Coeff of Marco A 12.2 Plt Count 149 Neut % (Auto) 79.3 H Lymph % (Auto) 11.9 L [place] % (Auto) 7.1 Eos % (Auto) 0.4 Baso % (Auto) 0.3 Neut # (Auto) 8.00 H Lymph # (Auto) 1.20 [place] # (Auto) 0.70 Eos # (Auto) 0.04 Baso # (Auto) 0.03 Abs Immat Gran (auto) 0.10 Imm/Tot Granulo (auto) 1.0 INR 1.05 APTT 29 Fibrinogen 450 Preliminary micro results at discharge 05/06/24 16:45 Blood Culture - Preliminary Blood Gram negative tod 05/06/24 17:30 Gram Stain - Preliminary Placenta Aerobic Culture - Preliminary Culture in Progress Anaerobic Culture - Preliminary Culture in Progress 05/06/24 15:20 Urine Culture - Preliminary Urine,Clean Catch No growth. Procedures Procedures: Procedures Operation Date: 05/06/24 18:10 Actual Procedure Side Surgeon p Suction Dilation & Curettage with Ultrasound Guidance Not Applicable Micaela Chadwick MD Discharge Plan Discharge Disposition: Home, Self-Care Date of Admission: 05/06/24 17:25 Attending Provider on Discharge: Starla Llanos Primary Care Provider: Provider,Not a Local Discharge Medications: New amoxicillin-pot clavulanate [Augmentin] 500-125 mg tablet 1 tab PO BID Qty: 10 0RF acetaminophen 325 mg Tablet 650 mg PO Q4H PRN (Reason: minor pain) Qty: 0 0RF ibuprofen 600 mg Tablet 600 mg PO Q6H Qty: 0 0RF Discontinued 28-800 mg-mcg tablet 1 tab PO DAILY Discharge Orders: Discharge Order (Routine); Ordered 05/08/24 Ordered By: Starla Llanos Patient Education: Acetaminophen (By mouth), Ibuprofen (By mouth), Amoxicillin/Clavulanate Potassium (By mouth), Dilation and Curettage (DC) Activity Detail: Nothing per vagina X 2 weeks. Discharge Diet: Regular Follow Up Appointments: Starla Llanos MD [Staff Physician] - Provider,Not a Local [Primary Care Provider] - Anna Pittman MD [Staff Physician] - 05/21/24 10:00 am ([facility] for follow-up. Dr. Chadwick not available this week.) Forms: [employer]Form[employer] Info Instructions Discharge Comments: Follow up [address] Chadwick
== END 2024-05-08 09:52 | disposition home or self-care (01) | DRG 779 ==
LOC: ED 22:12 → OR 22:12 → MEDSURG 05-07 08:27 → OR 05-08 08:11 → MEDSURG 05-08 08:59
PROVIDERS: Obstetrics & Gynecology; Admitting Provider Obstetrics & Gynecology; Emergency Provider Emergency Medicine; Visit Provider Obstetrics & Gynecology
PROC: 10D07Z8 Extraction of Products of Conception, Other, Via Natural or Artificial Opening (ICD-10-PCS; principal; 2024-05-06 18:00)
DX: O03.87 Sepsis following complete or unspecified spontaneous abortion (principal); A41.3 Sepsis due to Hemophilus influenzae; N99.61 Intraoperative hemorrhage and hematoma of a genitourinary system organ or structure complicating a genitourinary system procedure; B96.3 Hemophilus influenzae [H. influenzae] as the cause of diseases classified elsewhere; B95.7 Other staphylococcus as the cause of diseases classified elsewhere; Z3A.13 13 weeks gestation of pregnancy
CPT/HCPCS: 00940; 36415; 76815; 76998; 80048; 80076; 81001; 83605; 84145; 85025; 85384; 85610; 85730; 86140; 86850; 86900; 86901; 87040; 87070; 87075; 87077; 87086; 87147; 87181; 87185; 87205; 87631; 88305; 99140; 99284; 99291; Q0114; A9270; J0330; J1100; J1171; J1885; J2210; J2250; J2405; J2543; J2704; J3010; J3372; J3480; J3490; J7030; J7120

== ENCOUNTER 2024-09-21 09:06 | Outpatient (CLI) | payer OTHER, SELFPAY ==
--- NOTE | 2024-09-21 09:15 | CRLHL7_ITS ---
For Patients: As a result of the Century Cures Act, medical imaging exams and procedure reports are released immediately into your electronic medical record. You may view this report before your referring provider. If you have questions, please contact your health care provider. OBSTETRICAL ULTRASOUND TRANSVAGINAL, 09/21/2024 CLINICAL INDICATION: Dating and viability. LMP: 07/30/2024 TIFFANIE by LMP: 05/06/2025 Gestational age: 7 weeks 4 days Previous ultrasound: No TECHNIQUE: Real-time mcfadden-scale imaging of the fetus was performed transvaginal. FINDINGS: CRL: 1.4 cm, 7 weeks 5 days; TIFFANIE 05/05/2025 heart rate: 157 BPM Gestational sac: 2.6 cm, appears within normal limits Yolk sac: 2.8 mm, appears within normal limits Right ovary: Within normal limits; 2.9 x 1.7 x 1.7 cm, CL Left ovary: Within normal limits; 2.6 x 1.2 x 1.4 cm IMPRESSION: 1. Single living intrauterine with sonographic gestational age of 7 weeks 5 days and sonographic due date of 05/05/2025. 2. Incidental tiny cysts associated with the decidual reaction without subchorionic hemorrhage. JOSH MOSES M.D. Diagnostic Radiologist [email or web address] Transcribed: 12:[address]/Dictated by: Josh Moses MD @ 09/21/2024 11:42:00 AM (Electronically Signed)
== END 2024-09-21 09:07 | disposition home or self-care (01) ==
LOC: US 09:07
PROVIDERS: Visit Provider Registered Nurse
DX: Z34.91 Encounter for supervision of normal pregnancy, unspecified, first trimester (principal); O20.9 Hemorrhage in early pregnancy, unspecified; Z3A.01 Less than 8 weeks gestation of pregnancy
CPT/HCPCS: 76817

== ENCOUNTER 2024-09-21 10:57 | Outpatient (CLI) | payer OTHER, SELFPAY ==
[2024-09-21 15:25] LABS: Chlamydia DNA Amplified* NOT DETECTED (No Detected); GC DNA Amplified* NOT DETECTED (No Detected)
[2024-09-23 01:41] LABS: HPV Source Cervical; HPV, High Risk by TMA Not Detected
[2024-10-15 03:19] LABS: Protein Creatinine Ratio Urine 0.25 (0-0.19); Total Protein Urine 11 mg/dL
[2024-10-15 14:21] LABS: Collection Time Urine 24 Hours
[2024-10-15 14:22] LABS: Total Volume 24 Hour Urine 2300 ml; Urine Creatinine mg/24 Hour 1012 mg/Day
== END 2024-09-21 10:58 | disposition home or self-care (01) ==
PROVIDERS: Visit Provider Registered Nurse
DX: Z34.91 Encounter for supervision of normal pregnancy, unspecified, first trimester (principal); Z3A.01 Less than 8 weeks gestation of pregnancy; Z12.4 Encounter for screening for malignant neoplasm of cervix
CPT/HCPCS: 82565; 82570; 83020; 83021; 84156; 84450; 84460; 84520; 85660; 86592; 86703; 86704; 86706; 86762; 86787; 86803; 86850; 86900; 86901; 87086; 87340; 87491; 87591; 87624; 87625; 88141; 88142

== ENCOUNTER 2024-10-10 09:16 | Outpatient (CLI) | payer OTHER, SELFPAY | END 2024-10-10 09:17 | disposition home or self-care (01) | PROVIDERS: Visit Provider Obstetrics & Gynecology | DX: O16.1 Unspecified maternal hypertension, first trimester (principal); Z3A.10 10 weeks gestation of pregnancy | CPT/HCPCS: 84450; 84460 ==

== ENCOUNTER 2024-12-19 07:17 | Outpatient (CLI) | payer OTHER, SELFPAY ==
--- NOTE | 2024-12-19 07:15 | CRLHL7_ITS ---
For Patients: As a result of the 21st Century Cures Act, medical imaging exams and procedure reports are released immediately into your electronic medical record. You may view this report before your referring provider. If you have questions, please contact your health care provider. OB ULTRASOUND SURVEY LMP: 07/30/2024. TIFFANIE by LMP: 05/06/2025. GA: 20 w, 2 d. INDICATION: screen. TECHNIQUE: Real time grayscale imaging of the fetus was performed. Evaluate anatomy. Transabdominal. position: Vertex. Cervix: Visualized. Technique: Transabdominal. Length of closed cervix: 3.1 cm. Placenta/cord: Anterior. ? circumvallate. Technique: Transabdominal. Placenta tip to internal OS: 5.5 cm. Umbilical Cord: 3-vessel cord. Placenta insertion: Central. Amniotic Fluid: 4.6 cm SDP (greater than/equal to: 2- less than 8 cm). SURVEY: Observed Structures. Calvarium/Spine: Cerebellum: 2.2 cm, 22 w 2 d. Cisterna Magna: 5.2 mm. Nuchal Fold: 6.1 mm. Lateral Ventricle: 7.0 mm. CSP: Yes. Midline Falx: Yes. Choroid Plexus: Yes. Spine: Yes. Abdomen: Stomach: Yes. Abd Cord Insertion: Yes. Urinary Bladder: Yes. Kidneys: Yes. Diaphragm: Yes. Face: Nose/lips: Yes. Orbital view: Yes. Profile: Yes. Limbs: Upper Extremities: Yes. Lower Extremities: Yes. Hands: Yes. Feet: Yes. Vascular: 4-Chamber Heart: Yes. LVOT: Yes. RVOT: Yes. 3VV: Yes. 3VTV: Yes. BPD: 5.2 cm. 21 w, 5 d, 93 percent. HC: 18.8 cm. 21 w, 0 d, 76 percent. AC: 16.9 cm. 21 w, 6 d, 89 percent. FL: 3.3 cm. 20 w, 2 d, 43 percent. FL/AC ratio: 19.56 percent. HC/AC ratio: 1.11. heart rate: 129 bpm. age by this US: 21 w, 3 d. TIFFANIE by this US: 04/28/2025. EFW: 405 g. Weight: 0 lbs, 14 oz. Percentile by TIFFANIE: 89 percent. IMPRESSION: 1. Normal anatomic survey. 2. Circumvallate placenta appears to be present. Follow-up in the third trimester recommended. No previa. 3. Sonographic gestational age 21 weeks 3 days and sonographic due date 04/28/2025. Sonographic age is 8 days ahead of the clinical age. 4. Estimated weight 89th percentile. Abdominal circumference 89th percentile. Josh Jimenez M.D. Diagnostic Radiologist [email or web address] [employer] [email or web address] HECTOR/mary alice jj/Dictated by: Josh Jimenez MD @ 12/19/2024 9:33:00 AM (Electronically Signed)
== END 2024-12-19 07:18 | disposition home or self-care (01) ==
LOC: US 07:17
PROVIDERS: Visit Provider Obstetrics & Gynecology
DX: Z34.92 Encounter for supervision of normal pregnancy, unspecified, second trimester (principal); O36.62X0 Maternal care for excessive fetal growth, second trimester, not applicable or unspecified; Z3A.20 20 weeks gestation of pregnancy
CPT/HCPCS: 76805

== ENCOUNTER 2025-01-16 09:32 | Outpatient (CLI) | payer OTHER, SELFPAY ==
[2025-01-16] VITALS (8 sets, daily range): BP systolic 121–132; BP diastolic 61–77; PULSE 79–120; TEMP 36.8
[2025-01-16 10:09] LABS: Hematocrit 37.9 % (33.0-51.0); Hemoglobin* 13.1 gm/dL (12.0-16.0); Mean Corpuscular HGB Conc 35 gm/dL (32-36); Mean Corpuscular Hemoglobin 32 pg (26-34); Mean Corpuscular Volume 92 fL (80-100); Red Blood Count 4.10 m/uL (4.00-5.20); White Blood Count* 13.43 K/uL (4.50-11.00)
[2025-01-16 10:27] LABS: Alanine Aminotransferase* 35 U/L (4-35); Aspartate Amino Transferase* 40 U/L (12-35); Blood Urea Nitrogen* 13 mg/dL (5-24); Creatinine* 0.6 mg/dL (0.5-1.5); Estimated Glomerular Filt Rate 125 ml/min
[2025-01-16 10:30] LABS: Slide Review Reflex No
[2025-01-16 11:16] LABS: Protein Creatinine Ratio Urine 0.07 (0-0.19)
--- NOTE | 2025-01-16 12:13 | PC.OBNST ---
NST Note NST Note Start: 01/16/25 09:45 Freq: ONCE Status: Active Protocol: Document 01/16/25 12:03 HCR (Rec: 01/16/25 12:13 HCR [id number]) NST Note 2 Para (# of births) 0 EDC 05/06/25 Gestational Age In 24 Weeks & 2 Days Weeks & Days High Risk Factors High Blood Pressure - Preexisting Patient Presented Other with Complaint(s) of Other Complaints Sent from clinic for serial BP's and labs. Strip is non-reactive but appropriate for GA of 24.2, reviewed with Kusum Sanchez RN and Dr. Elizabeth. Reactive No Appropriate for Yes Gestational Age MCKENNA Riley RN Date 01/16/25 Reactive No Appropriate for Yes Gestational Age MCKENNA Sanchez RN Date 01/16/25 OB NST charge Yes Complete NST Note Yes via Write Note The provider's electronic signature indicates the NST is reactive/appropriate for gestational age. *Note to provider: If an addendum is required, open the patient's chart and click on the note under the Nurse/Allied Health tab.
--- NOTE | 2025-01-16 20:04 | P.OBLDTN_ITS ---
OB - Triage/Final Diagnosis Visit Information Narrative: Velvet is a 29yo at 24w2d GA sent to triage for BP monitoring. is complicated by chronic HTN, suspected white coat hypertension, history of a septic . She presented for routine Ob visit today, where BP was in the nonsustained sev ere range. 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 She took her BP at home this morning before her visit, was noted to be 120/60s. She denies headaches, vision changes and RUQ pain. No Ob concerns such as contractions, vaginal bleeding, leaking of fluids nor decreased movement. In triage, she underwent serial BP monitoring that was entirely normal. PreE labs were obtained, noted to be within normal limits aside from AST of 40. Of note, her AST was 47 earlier in and this did resolve. UPCR negative for proteinuria. NST is reassuring for GA. After extended monitoring and entirely normal BP evaluation, she was discharged to home. Long acting anti-hypertensive regimen was not started, given totally normal BPs in triage and normal values at home. Her BP cuff has previously been calibrated in our clinic. I am suspicious for both chronic HTN and seemingly a component of white coat hypertension. Patient notes she does not have anxiety at baseline, but notes she feels anxious prior to visits out of concern for BPs and in the setting of her previous adverse outcome (septic Ab). Certainly, this is understandable but I do feel inclined to at least manage her as though she has cHTN given potential risks of HTN and the fact that her BP is also likely elevated in other stressful contexts. She has not yet had a level 2 US and MFM consult, which I do think will be valuable to help address next steps and deliniate her plan of care. Urgent MFM consultation placed, to occur at [facility] or with [facility] in [place] pending availability. Explained we can revise her growth US evaluation pending scheduling of this consult. Encouraged patient to continue ASA 81mg and BID home BP monitoring. If she has values >140/90, headaches, vision changes or RUQ pain I would recommend repeat evaluation. Would have a low threshold to start medications if home BPs raise, given her BPs are always significantly higher clinically and to prevent superimposed preE. Recommend repeat labs in clinic on Tuesday in light of AST of 40, to ensure no interval worsening. If stable, plan next routine Ob visit in 2 weeks. Very strict return precautions reinforced. Patient expressed understanding and is agreeable to plan. Tasks sent to facilitate scheduling labs on Tuesday (plus SBAR to on-call MD), follow up visit in 2 weeks and MFM consultation. Evaluation Laboratory results: Laboratory Tests 01/16/25 01/16/25 Range/Units 10:00 09:54 WBC 13.43 H (4.50-11.00) K/uL RBC 4.10 (4.00-5.20) m/uL Hgb 13.1 (12.0-16.0) gm/dL Hct 37.9 (33.0-51.0) % MCV 92 (80-100) fL MCH 32 (26-34) pg MCHC 35 (32-36) gm/dL Plt Count 217 (140-440) K/uL BUN 13 (5-24) mg/dL Creatinine 0.6 (0.5-1.5) mg/dL Estimated GFR 125 ml/min Uric Acid 3.3 (2.2-8.4) mg/dL AST 40 H (12-35) U/L ALT 35 (4-35) U/L Urine Creatinine 167.2 mg/dL Protein/Creatinin Ratio 0.07 (0-0.19) Urine Total Protein 11 mg/dL Vital signs: Vital Signs - 24 hr 01/16/25 09:55 01/16/25 10:08 01/16/25 10:23 Temperature 98.2 F Pulse Rate 96 93 Blood Pressure 131/65 131/67 01/16/25 10:38 01/16/25 10:53 01/16/25 11:08 Temperature Pulse Rate 101 H 100 86 Blood Pressure 125/61 127/61 130/64 01/16/25 11:23 01/16/25 11:53 Temperature Pulse Rate 120 H 79 Blood Pressure 132/77 121/61
== END 2025-01-16 12:03 | disposition home or self-care (01) ==
LOC: OB OUT 09:32 → OB 09:33
PROVIDERS: Obstetrics & Gynecology; Visit Provider Obstetrics & Gynecology
DX: O10.912 Unspecified pre-existing hypertension complicating pregnancy, second trimester (principal); Z3A.24 24 weeks gestation of pregnancy
CPT/HCPCS: 36415; 59025; 82565; 82570; 84156; 84450; 84460; 84520; 84550; 85027; G0463

== ENCOUNTER 2025-01-18 07:54 | Outpatient (CLI) | payer OTHER, SELFPAY | END 2025-01-18 07:55 | disposition home or self-care (01) | LOC: NFLDREF 01-20 06:06 | PROVIDERS: Visit Provider Obstetrics & Gynecology | DX: O10.912 Unspecified pre-existing hypertension complicating pregnancy, second trimester (principal); Z3A.24 24 weeks gestation of pregnancy | CPT/HCPCS: 82565; 84450; 84460 ==

== ENCOUNTER 2025-01-30 11:29 | Outpatient (CLI) | payer OTHER, SELFPAY | END 2025-01-30 11:30 | disposition home or self-care (01) | LOC: NFLDREF 11:29 | PROVIDERS: Visit Provider Obstetrics & Gynecology | DX: R74.01 Elevation of levels of liver transaminase levels (principal); I10 Essential (primary) hypertension | CPT/HCPCS: 80076; 82565; 84450; 84460 ==

== ENCOUNTER 2025-02-13 08:05 | Outpatient (CLI) | payer OTHER, SELFPAY | END 2025-02-13 08:06 | disposition home or self-care (01) | PROVIDERS: Visit Provider Obstetrics & Gynecology | DX: O26.893 Other specified pregnancy related conditions, third trimester (principal); R74.01 Elevation of levels of liver transaminase levels; I10 Essential (primary) hypertension; Z3A.28 28 weeks gestation of pregnancy | CPT/HCPCS: 82565; 82570; 84156; 84450; 84460; 84520; 86592; 86706 ==

== ENCOUNTER 2025-02-20 08:01 | Outpatient (CLI) | payer OTHER, SELFPAY | END 2025-02-20 08:02 | disposition home or self-care (01) | LOC: NFLDREF 02-25 14:31 | PROVIDERS: Visit Provider Obstetrics & Gynecology | DX: R73.09 Other abnormal glucose (principal) | CPT/HCPCS: 82951; 82952 ==

== ENCOUNTER 2025-02-27 09:12 | Outpatient (CLI) | payer OTHER, SELFPAY ==
--- NOTE | 2025-02-27 09:15 | CRLHL7_ITS ---
For Patients: As a result of the Century Cures Act, medical imaging exams and procedure reports are released immediately into your electronic medical record. You may view this report before your referring provider. If you have questions, please contact your health care provider. OB ULTRASOUND LMP: 07/30/2024. TIFFANIE by LMP: 05/06/2025. GA: 30 w, 2 d. Single. Comparison: 12/19/2024, 09/21/2024. INDICATION: CHTN and circumvallate placenta. TECHNIQUE: Real time grayscale imaging of the fetus was performed. Transabdominal. CERVIX: Not visualized. POSITIONING: Vertex. AMNIOTIC FLUID: 7.9 cm. SDP (N: greater than 2 x 1 cm) PLACENTA: Technique: Transabdominal. PLACENTA POSITION: Anterior. DOPPLER: heart rate: 145 bpm. BIOMETRY: BPD: 8.36 cm. 33 w, 5 d, >97 percent. HC: 30.35 cm. 33 w, 5 d, 95.2 percent. AC: 28.71 cm. 32 w, 5 d, 96.4 percent. FL: 5.55 cm. 29 w, 2 d, 12.0 percent. FL/AC ratio: 19.3 percent. HC/AC ratio: 1.1. EFW: 1854 g. Weight: 4 lbs, 1 oz. age by this US: 32 w, 3 d. TIFFANIE by this US: 04/21/2025. Percentile by TIFFANIE: 88.0 percent. IMPRESSION: 1. Sonographic gestational age 32 weeks 3 days and sonographic due date 04/21/2025. Sonographic age is 15 days ahead of the clinical age. 2. Estimated weight 88th percentile. Abdominal circumference 96th percentile. Biparietal diameter greater than 97th percentile. Josh Jimenez M.D. Diagnostic Radiologist [email or web address] HECTOR/mary alice wheat/Dictated by: Josh Jimenez MD @ 02/27/2025 10:10:00 AM (Electronically Signed)
== END 2025-02-27 09:13 | disposition home or self-care (01) ==
LOC: US 09:13
PROVIDERS: Visit Provider Obstetrics & Gynecology
DX: O10.913 Unspecified pre-existing hypertension complicating pregnancy, third trimester (principal); O36.63X0 Maternal care for excessive fetal growth, third trimester, not applicable or unspecified; Z3A.30 30 weeks gestation of pregnancy
CPT/HCPCS: 76816

== ENCOUNTER 2025-03-13 09:05 | Outpatient (CLI) | payer OTHER, SELFPAY | END 2025-03-13 09:06 | disposition home or self-care (01) | LOC: NFLDREF 03-18 13:42 | PROVIDERS: Visit Provider Obstetrics & Gynecology | DX: R74.01 Elevation of levels of liver transaminase levels (principal); I10 Essential (primary) hypertension | CPT/HCPCS: 82565; 82570; 84156; 84450; 84460; 84520 ==

== ENCOUNTER 2025-03-27 08:45 | Outpatient (CLI) | payer OTHER, SELFPAY | END 2025-03-27 08:46 | disposition home or self-care (01) | LOC: NFLDREF 03-29 14:59 | PROVIDERS: Visit Provider Obstetrics & Gynecology | DX: O26.893 Other specified pregnancy related conditions, third trimester (principal); R74.01 Elevation of levels of liver transaminase levels; I10 Essential (primary) hypertension; Z3A.34 34 weeks gestation of pregnancy | CPT/HCPCS: 82565; 82570; 84156; 84450; 84460; 84520 ==

== ENCOUNTER 2025-04-10 08:03 | Outpatient (CLI) | payer OTHER, SELFPAY ==
--- NOTE | 2025-04-10 08:15 | CRLHL7_ITS ---
For Patients: As a result of the Century Cures Act, medical imaging exams and procedure reports are released immediately into your electronic medical record. You may view this report before your referring provider. If you have questions, please contact your health care provider. OB ULTRASOUND FOLLOW-UP/LIMITED CLINICAL HISTORY: CHTN. COMPARISON: 02/27/2025, 12/19/2024. TECHNIQUE: Real time mcfadden scale imaging of the fetus was performed. Transabdominal imaging performed. FINDINGS: LMP: 07/30/2024. TIFFANIE by LMP: 05/06/2025. GA: 36 weeks 2 days. Gestation: Single. Cervix: Not visualized. Positioning: Vertex. Amniotic Fluid: 6.6 cm SDP. Placenta: Technique: TA. Placenta Position: Anterior. Dopplers: Heart Rate: 149 bpm. BIOMETRY BPD: 9.4 cm, 38 weeks 2 days. 96% HC: 34.3 cm, 39 weeks 4 days. 91% AC: 33.7 cm, 37 weeks 4 days. 90% FL: 6.9 cm, 35 weeks 1 day. 20% FL/AC Ratio: 20.32% HC/AC Ratio: 1.02. EFW: 3180 grams, 7 lb 0 oz. Age by this US: 37 weeks 5 days. TIFFANIE by this US: 04/26/2025. Percentile by TIFFANIE: 80% IMPRESSION: 1. Sonographic gestational age 37 weeks 5 days and sonographic due date 04/26/2025. Sonographic age is 10 days ahead of the clinical age. 2. Estimated weight 80th percentile. Abdominal circumference 90th percentile. Josh Jimenez M.D. Diagnostic Radiologist [email or web address] Transcribed: 11:24 am DW/Dictated by: Josh Jimenez MD @ 04/10/2025 10:42:00 AM (Electronically Signed)
== END 2025-04-10 08:04 | disposition home or self-care (01) ==
LOC: US 08:03
PROVIDERS: Visit Provider Obstetrics & Gynecology
DX: O10.913 Unspecified pre-existing hypertension complicating pregnancy, third trimester (principal); O36.63X0 Maternal care for excessive fetal growth, third trimester, not applicable or unspecified; Z3A.37 37 weeks gestation of pregnancy
CPT/HCPCS: 76816

== ENCOUNTER 2025-04-10 08:07 | Outpatient (CLI) | payer OTHER, SELFPAY | END 2025-04-10 08:08 | disposition home or self-care (01) | LOC: NFLDREF 04-12 15:33 | PROVIDERS: Visit Provider Obstetrics & Gynecology | DX: O26.893 Other specified pregnancy related conditions, third trimester (principal); R74.01 Elevation of levels of liver transaminase levels; I10 Essential (primary) hypertension; Z3A.36 36 weeks gestation of pregnancy | CPT/HCPCS: 82565; 82570; 84156; 84450; 84460; 84520; 87081; 87653 ==

== ENCOUNTER 2025-04-12 09:44 | Outpatient (CLI) | payer OTHER, SELFPAY | END 2025-04-12 09:45 | disposition home or self-care (01) | LOC: NFLDREF 04-15 17:59 | PROVIDERS: Visit Provider Obstetrics & Gynecology | DX: I10 Essential (primary) hypertension (principal) | CPT/HCPCS: 82565; 82570; 84156; 84450; 84460; 84520 ==

== ENCOUNTER 2025-04-15 13:48 | Outpatient (CLI) | payer OTHER, SELFPAY | END 2025-04-15 13:49 | disposition home or self-care (01) | LOC: NFLDREF 04-28 12:25 | PROVIDERS: Visit Provider Obstetrics & Gynecology | DX: Z34.93 Encounter for supervision of normal pregnancy, unspecified, third trimester (principal); I10 Essential (primary) hypertension | CPT/HCPCS: 82565; 82570; 84156; 84450; 84460; 84520 ==

== ENCOUNTER 2025-04-15 17:29 | Inpatient (IN) | payer OTHER, SELFPAY ==
[2025-04-15] VITALS (8 sets, daily range): BP systolic 123–133; BP diastolic 69–78; PULSE 71–87; RESP 16–20; TEMP 36.7–36.8; O2SAT 98; BMI 28.3
[2025-04-15] MEDS: LACTATED RINGERS 1000 ML 1,000 ML 125 ML IV (18:42)
[2025-04-15] MEDS: OXYTOCIN 30 unit/500 ML in NS 30 UNIT/500 ML BAG IVPB (18:43)
[2025-04-15 18:45] LABS: Hematocrit* 35.6 % (33.0-51.0); Hemoglobin* 12.1 gm/dL (12.0-16.0); Immature Granulocytes Pct Auto 1.1 %; Mean Corpuscular HGB Conc 34 gm/dL (32-36); Mean Corpuscular Hemoglobin 31 pg (26-34); Mean Corpuscular Volume 90 fL (80-100); RDW Coefficient of Variation % 11.7 % (11.5-15.5); Red Blood Count* 3.95 m/uL (4.00-5.20); White Blood Count* 13.09 K/uL (4.50-11.00)
[2025-04-15 18:52] LABS: Immature Granulocytes Abs Auto 0.10 K/uL (0.00-0.30); Lymphocytes Absolute Auto 2.50 K/uL (0.90-2.90); Slide Review Reflex No
--- NOTE | 2025-04-15 21:06 | P.LDBA_ITS ---
Subjective History of Present Illness Date Seen: 04/15/25 Narrative: Patient is being admitted to Labor and Delivery for recommended induction of labor. She is a 29 year old at 37.0 weeks gestation. Her full history and physical was dictated by Dr. Llanos on 04/10. Please see this for details. Velvet was monitored extensively throughout her for white coat hypertension. Today, she had mild ranging blood pressure on all of her blood pressure that she self cycled. Additionally, she had P/C ratio of 0.39 today. She was subsequently diagnosed with pre-eclampsia and recommendation was for her to be induced as she is 37weeks. + movement. Denies any labor symptoms. 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 Llanos *Current EDC is the date she lost her last # Hx loss (septic AB at 13 weeks with suction curettage), patient planning more frequent office visits. # White coat HTN (NOT chronic per [facility]). She regularly checks BP outside of our office visits; entirely normal. All clinical values >140/90 though. BP cuff calibrated in clinic on 11/22. Seen in Center 01/16 for severely elevated SBP in clinic (168). Repeats in Center normal. [x] Referred to [facility] for level 2 US and consult - Laquita spoke to [facility] on 01/22 - see scanned consult note for complete details - If mild range in clinic, check for Sx and get labs - will plan to get labs w/ every visit since she's always mild range. If normal BP at home, no sx, normal labs > continue home monitoring - If severe range in clinic, transfer to Center for extended monitoring/labs - DO NOT start meds for cHTN, if she gets mild range at home we will consider this diagnosis of HTN disorder of - If has Dx of gHTN/preE and severe range in clinic - observe in hospital x24 hours to monitor for progression to severe On ASA 81mg 24 hour urine: 253 on 10/14 Plan: Q2w visits for home BP log review, labs with elevated BP. Growth at 28 and 34 weeks, go to serial growth if gets HTN dx (will change to 30 and 36 weeks given that last US with [facility] was 25 weeks) At 36 2/7 weeks: pressures in clinic (which she is cycling herself) are newly elevated to 140s / 80s. Still normal at home. HELLP labs normal. Normal 2 days later in clinic. Should she have recurrence of high BPs at home or in clinic (while cycling them in the room without provider present) I favor diagnosis of gestational HTN and IOL at that time, as she will be greater than 37 weeks. IOL at 39 weeks (37w0d GA if HTN diagnosis, sooner if severe) #Intermittent/mild transaminitis - 47 on 09/21 >normalized [x] repeat labs 01/18 - stable, AST remains 40 - Liver panel 01/30: AST 42, all other values normal. AST 30 (normal) on 02/13/25. --> 44 on 03/13 --> 42 on 03/27, normalized 04/10 - Labs at every visit! 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 # Desire for genetic screening - [place] test: Low risk fetus, negative carrier screen. # Elevated 1 hr GTT = 144. 3 hr GTT entirely normal Imagin12/19/24: Question of circumvallate placenta. Placenta is anterior without previa. Three-vessel cord. SDP 4.6 cm. Normal anatomy. EFW 89%, AC 89 %, BPD 93%, HC 76%, FL 43%. 02/27: EFW 1854g at 88%ile - BPD >97%, HC 95%, AC 96%, FL 12%. MVP 7.9cm. FHR 145bpm, vertex. 04/10: EFW 3180g at 80%ile - BPD 96%, HC 91%, AC 90%, FL 20%. MVP 6.6cm. Vertex. Vaccinations: Flu: Up-to-date Covid: Completed, not up-to-date. Recommended. Declines. Tdap: 02/27/25 RSV: 03/13/25 32 week mental health:03/13/25 Last pap: [facility] - Problem Based A/P Additional Plan (1) Preeclampsia: Status: Acute Plan: - Dx on 04/15/25 - Pre-e labs: plt 181, Cr 0.6, AST 36, ALT 20, P/C 0.39 (2) Transaminitis: Status: Acute Plan: - History of intermittent transaminitis - AST 36 today Plan - Will proceed with IOL - Favorable cervix. Low dose Pitocin until midnight then will start titrating Pitocin. - Pain control: epidural PRN OB Exam Physical Exam Vital signs: Temp Pulse Resp BP Pulse Ox 98.3 F 74 20 130/73 98 04/15/25 19:26 04/15/25 20:28 04/15/25 20:28 04/15/25 20:28 04/15/25 19:23 Narrative: Pelvic exam: 3/80/-1, moderately soft, mid position
[2025-04-16] VITALS (68 sets, daily range): BP systolic 104–152; BP diastolic 54–77; PULSE 60–96; RESP 16–18; TEMP 36.5–36.6; O2SAT 97–100
[2025-04-16] MEDS: LACTATED RINGERS 1000 ML 1,000 ML 122 ML IV (02:08)
--- NOTE | 2025-04-16 09:23 | PM.OBPNL ---
Subjective Date Seen: 04/16/25 Narrative: Velvet has had Pitocin for induction of labor overnight. She is not having any strong contractions and is overall feeling well. BPs have been within normal ranges. Pitocin is currently at 19 mU/min. Objective Vital Signs: Last Vital Signs Temp 98 F 04/16/25 08:02 Pulse 66 04/16/25 08:59 Resp 18 04/16/25 08:02 BP 132/67 04/16/25 08:59 Pulse Ox 98 04/15/25 19:23 Comments: Gen - NAD SVE - 4 / 90 / 0 / anterior / soft AROM for abundant clear fluid Contractions Monitor mode: External Contraction pattern: Irregular Pitocin Rate (mU/min): 19 Assessment Assessment: early labor Station: 0 Amniotic Membrane Status: AROM Status: Category ll Heart Rate Baseline: 130 Retirement Variability: Moderate (6-25) Monitor Accelerations: Present Monitor Decelerations: Variable Tracing Comments: She had category 1 tracing until AROM, after which point there have been two variable decelerations. Overall reassuring Labor Progress: Some progress in early labor overnight on pitocin augmentation Maternal Status: Preeclampsia without severe features. Normotensive since admission. Slight elevation of AST on HELLP labs yesterday afternoon, with otherwise normal labs. Plan Plan: Continue Pitocin augmentation Continuous monitoring
[2025-04-16] MEDS: LACTATED RINGERS 1000 ML 1,000 ML 125 ML IV (10:21)
[2025-04-16] MEDS: LIDOCAINE 2% (PF) 5 ML VIAL EPIDURAL (12:30)
[2025-04-16] MEDS: ROPIVACAINE 0.2% 100 ml 100 ML 12 MG EPIDURAL ×2 (12:30→19:28)
--- NOTE | 2025-04-16 12:38 | PM.ANBPRC ---
[facility] Medical History (Updated 04/15/25 @ 21:26 by Anna Pittman MD) Spontaneous with sepsis ?O03.87 - Sepsis following complete or unspecified spontaneous (ICD-10) History of abnormal cervical Pap smear ?Z87.42 - Personal history of other diseases of the female genital tract (ICD-10) Surgical History H/O dilation and curettage ?Z98.890 - Other specified postprocedural states (ICD-10) Family History Father Alcohol dependence Mother Breast cancer, Onset Age: 42 Maternal Grandmother Breast cancer Social History (Updated 04/10/25 @ 09:41 by Starla Llanos MD) Narrative: Lives in [place] with and dog. P.A. at [facility]. What is your current living situation?: I presently have a place to live Problems where you live: no known problems In the past 12 months, utilities in danger of being shut off: no In past 12 months, lack of transportation kept you from medical appts, meetings, work, or getting things needed for daily living: no In the past 12 mos, have been you worried that your food would run out before you had money to buy more?: never true In the past 12 mos, the food you bought just didn't last and you didn't have money to buy more?: never true Smoking Status: Never smoker How often does anyone, including family, friends and others, physically hurt you: never How often does anyone, including family, friends and others, insult or talk down to you: never How often does anyone, including family, friends and others, threaten you with harm: never How often does anyone, including family, friends and others, scream or curse at you: never Meds Home Medications and Allergies Home Medications ?Medication ?Instructions ?Recorded ?Confirmed ?Type docosahexaenoic acid 200 mg 200 mg PO DAILY 09/21/24 04/15/25 History capsule ( DHA) aspirin 81 mg tablet 81 mg PO QDAY 01/16/25 04/15/25 History Allergies Allergy/AdvReac Type Severity Reaction Status Date / Time Sulfa (Sulfonamide Allergy Severe Anaphylaxis Verified 04/15/25 13:56 Antibiotics) Results Labs Labs: Laboratory Results - last 24 hr 04/15/25 18:30 WBC 13.09 H RBC 3.95 L Hgb 12.1 Hct 35.6 MCV 90 MCH 31 MCHC 34 RDW Coeff of Marco A 11.7 Plt Count 181 Neut % (Auto) 72.8 H Lymph % (Auto) 18.9 L [place] % (Auto) 6.7 Eos % (Auto) 0.3 Baso % (Auto) 0.2 Neut # (Auto) 9.50 H Lymph # (Auto) 2.50 [place] # (Auto) 0.90 Eos # (Auto) 0.00 Baso # (Auto) 0.00 Abs Immat Gran (auto) 0.10 Imm/Tot Granulo (auto) 1.1 Blood Type A Positive Antibody Screen NEGATIVE Vital Signs Vital Signs: Last Vital Signs Temp 98 F 04/16/25 08:02 Pulse 67 04/16/25 12:36 Resp 18 04/16/25 08:02 BP 120/62 04/16/25 12:36 Pulse Ox 97 04/16/25 12:37 Weight: 77.337 kg Height: 165.1 cm Anesthesia Procedures Epidural Insertion Patient Location: OB Start Time: 11:55 Stop Time: 12:40 Start Date: 04/16/25 Stop Date: 04/16/25 Reason for Block: procedure for pain Patient Position: sitting Performed By: Janice Lainez Preanesthetic Checklist: IV checked, risks and benefits discussed, monitors and equipment checked, pre-op evaluation, timeout performed and anesthesia consent Prep: chlorhexidine gluconate Monitoring: blood pressure monitoring, continuous pulse oximetry and heart rate Approach: midline Vertebral Space: lumbar (1-5) Epidural Technique: STEPHEN saline Needle Type: Tuohy needle Injection Technique: continuous catheter Needle gauge: 17 Needle Length (cm): 10 cm Needle Insertion Depth (cm): 5 Catheter Gauge: 19 Catheter Type: multi-orifice Catheter at skin depth (cm): 11 Test Dose Result: negative and lidocaine 1.5% with epinephrine 1 to 200,000
[2025-04-16] MEDS: ONDANSETRON 2 MG/ML inj 4 MG IV ×2 (17:05→21:29)
--- NOTE | 2025-04-16 21:25 | P.OBPN_ITS ---
Subjective Date Seen: 04/16/25 Narrative: Velvet progressed well in labor after artificial rupture of membranes. She had an epidural for pain control. She was found to be completely dilated at 5:10 p.m.. We initially tried a few pushes without significant movement of head. She had no urge to push at that time. We again began pushing at 5:40 p.m., and she has been pushing consistently at that time. She is tried numerous different positions. Initially, she had some pain in her left lower quadrant, but this resolved throughout the course of her labor. status has been reassuring throughout her 2nd stage. Despite all her efforts, as of 9:00 p.m., station was at +2 with only a small caput. I previously confirmed OA position both manually and with bedside ultrasound. We discussed options for management of arrest descent, including continued efforts at repositioning and pushing, attempted vacuum assisted vaginal delivery, and delivery. Ultimately, she opted for attempted vacuum assisted vaginal delivery. We discussed the risks of vacuum assisted vaginal delivery, including the risk of failure, scalp hematoma for the baby and related elevated bilirubin, rare risk of intracerebral bleeding. Verbal consent obtained. Maternal pelvis was previously examined and found to be adequate. Bladder was straight catheterized and drained for just shy of 500 mL about 10 minutes prior to procedure. Flat vacuum cup was placed on vertex. Suction was applied during maternal contractions only. Traction was applied in addition to maternal expulsive efforts over the course of 2 contractions. At the end of the 2nd contraction, 1 pop-off occurred. There was no descent of the had during this time. After these 2 attempts, I was able to easily displaced the head superiorly in the pelvis. Thereafter, I recommended delivery, and patient agreed. We discussed risks of procedure, including bleeding/hemorrhage, risk of blood transfusion, infection, uterine scarring, impact on future pregnancies, thromboembolism, and likely recovery and restrictions. Consent form was reviewed with and signed by patient. Cefazolin and azithromycin in preoperative prophylaxis. Objective Vital Signs: Last Vital Signs Temp 98 F 04/16/25 20:41 Pulse 96 04/16/25 21:17 Resp 16 04/16/25 13:49 BP 126/59 L 04/16/25 21:17 Pulse Ox 100 04/16/25 13:17 Pelvic Exam Dilation (cm): Complete Station: +2 Contractions Monitor mode: External Contraction pattern: Irregular Pitocin Rate (mU/min): 16 Assessment Station: +2 Amniotic Membrane Status: AROM Status: Category l Heart Rate Baseline: 140 Residential Variability: Moderate (6-25) Monitor Accelerations: Present Monitor Decelerations: Variable Tracing Comments: Intermittent brief variables with contractions Labor Progress: Arrest of descent Maternal Status: Normotensive despite diagnosis of preeclampsia Plan Plan: Primary delivery
[2025-04-16] MEDS: AZITHROMYCIN 500 MG in 0.9 % SODIUM CHLORIDE 250 ml 250 ML 255 MG IVPB (21:31)
--- NOTE | 2025-04-16 23:21 | SUR.OPER ---
urine color (cabrera red) observed in persaud noted to be that color preprocedure per surgeon
--- NOTE | 2025-04-16 23:29 | P.OBPRC_ITS ---
Procedure Date of procedure: 04/16/25 Pre-op diagnosis: 37 weeks, 1 day gestation Preeclampsia without severe features Arrest of descent, failed vacuum-assisted vaginal delivery Post-op diagnosis: same Procedure Done: Global Will [facility] bill your pro fee for this procedure?: Yes Blood Loss Measurement Type: QBL (126) Bakri Used: No IV fluids (mL): 1,500 Urine Output (mL): 200 Urine Output Comment: blood-tinged; also noted prior to Surgeon: Starla Llanos MD Findings: 1. Male , cephalic OA presentation, Apgars of 9 and 9, weight 3190 g = 7 lb, 1 oz 2. Normal appearance uterus, bilateral tubes and ovaries Procedure Name: Primary low-transverse section Procedure Description: PROCEDURE IN DETAIL: Patient was taken to the operating room with IV running. She received cefazolin and azithromycin in preoperative prophylaxis. Epidural anesthesia had previously been administered. More catheter was inserted. She was prepped and draped in the usual sterile fashion. Anesthesia was tested and initially found to be suboptimal; epidural was then re-dosed and ultimately found to be adequate. A low-transverse skin incision was made with a scalpel and carried through to the underlying layer of fascia with the scalpel. The subcutaneous fat was dissected off the underlying fascia bluntly. The fascia was nicked in the midline with a scalpel, and this incision was extended laterally with scissors. Fascia was dissected bluntly and sharply off the underlying rectus. The rectus muscles were in the midline. Peritoneum was identified and entered bluntly. Bovie was used to widen this opening laterally. Gregg O retractor was inserted and tightened down, providing excellent visualization of the lower uterine segment. The bladder reflection was found to be advanced along the lower uterine segment. A bladder flap was created with a combination of sharp and blunt dissection. Low-transverse uterine incision was made with a scalpel. Incision was widened bluntly. The 's head was grasped through the hysterotomy and delivered with the help of fundal pressure. The remainder of the body delivered without incident. Cord was clamped and cut after 30 seconds. was handed off to attending nurses. The placenta was delivered with gentle traction on the cord. The uterus was exteriorized and cleaned of all clots and debris with the dry lap pad. The hysterotomy was reapproximated with 0 Vicryl in a running, locked fashion. Second layer of the same suture was used in imbricating fashion to obtain hemostasis. The adnexa were examined and noted to be normal in appearance. The cul-de-sac was cleansed with a dampened laparotomy sponge. The uterus was returned to the abdomen. The Gregg O retractor was removed. The gutters were cleansed with laparotomy sponge, removing any further clots and debris. The hysterotomy was reexamined and found to be hemostatic. The peritoneum was reapproximated with 2 0 Vicryl in a running fashion. The rectus muscles were examined and found to be hemostatic. The fascia was reapproximated with 0 Vicryl in a running fashion. Subcutaneous fat was irrigated and Bovie used on oozing vessels. The subcutaneous fat was reapproximated with 2 0 plain gut suture in an interrupted fashion. The skin was closed with a subcuticular stitch of 4-0 Vicryl. Surgical glue was applied above this. Patient tolerated procedure well was taken to recovery area in stable condition. Complications: Transient uterine atony, treated with oxytocin, tranexamic acid, a single dose of Hemabate and buccal misoprostol. Surgery Debrief Performed: Yes Surgery Debrief Comment: Postoperative debrief was verbalized with OR staff, including a verification of pathology specimens to be sent as described above. Disposition: floor total score - 1 minute: 9 total score - 5 minute: 9
--- NOTE | 2025-04-16 23:52 | P.ANES_ITS ---
Anesthesia Charges Start Date/Time Anesthesia Start Date: 04/16/25 Anesthesia Start Time: 22:08 Stop Date/Time Anesthesia Stop Date: 04/16/25 Anesthesia Stop Time: 23:50 Summary Emergency: PROJECT LEADER Coding CPT Codes CPT Codes: ANESTH CS DELIVERY - 51893 ([id number]) P2 - PATIENT W/MILD SYST DISEASE, QZ - PROJECT LEADER SVC W/O BARREL STAVE INSPECTOR BY Additional Codes: Summary - Emergency: PROJECT LEADER ([id number])
--- NOTE | 2025-04-16 23:52 | W.ANESCHARGE ---
Anesthesia Charges Start Date/Time Anesthesia Start Date: 04/16/25 Anesthesia Start Time: 22:08 Stop Date/Time Anesthesia Stop Date: 04/16/25 Anesthesia Stop Time: 23:50 Summary Emergency: BEAD WRAPPER Coding CPT Codes CPT Codes: ANESTH CS DELIVERY - 24973 ([id number]) P2 - PATIENT W/MILD SYST DISEASE, QZ - BEAD WRAPPER SVC W/O ENGINE INSPECTOR BY Additional Codes: Summary - Emergency: BEAD WRAPPER ([id number])
[2025-04-17] VITALS (18 sets, daily range): BP systolic 107–128; BP diastolic 64–78; PULSE 60–86; RESP 16–18; TEMP 36.6–36.8; O2SAT 67–99
--- NOTE | 2025-04-17 | P.ANES_ITS ---
Anesthesia Charges Start Date/Time Anesthesia Start Date: 04/16/25 Anesthesia Start Time: 22:08 Stop Date/Time Anesthesia Stop Date: 04/16/25 Anesthesia Stop Time: 23:50 Summary Emergency: CRANE HELPER Coding CPT Codes CPT Codes: ANES/ANALG CS DELIVER ADD-ON - 71564 ([id number]) QZ - CRANE HELPER SVC W/O IMMUNOPATHOLOGIST BY , P2 - PATIENT W/MILD SYST DISEASE Additional Codes: Summary - Emergency: CRANE HELPER ([id number])
--- NOTE | 2025-04-17 | W.ANESCHARGE ---
Anesthesia Charges Start Date/Time Anesthesia Start Date: 04/16/25 Anesthesia Start Time: 22:08 Stop Date/Time Anesthesia Stop Date: 04/16/25 Anesthesia Stop Time: 23:50 Summary Emergency: STAMP COLLECTOR Coding CPT Codes CPT Codes: ANES/ANALG CS DELIVER ADD-ON - 46336 ([id number]) QZ - STAMP COLLECTOR SVC W/O PAINT STRIPPER BY , P2 - PATIENT W/MILD SYST DISEASE Additional Codes: Summary - Emergency: STAMP COLLECTOR ([id number])
--- NOTE | 2025-04-17 00:01 | W.PM.NB ---
Nerve Block Nerve Block Time Seen by Provider: 23:40 Date Seen: 04/17/25 Type of block requested by surgeon for post-operative analgesia: TAP Side: bilateral Time out performed: Yes Verification of patient name: Yes Verification of date of : Yes Site marking: site marked Name of person performing procedure: Janice Sklujessicaaaronkeith Continuous monitoring Was continuous monitoring of O2 sat, B/P, quality assurance monitor body, recorded every 15 minutes?: Yes Procedure Checklist: sterile prep, needles and gloves Ultrasound guided. Images saved: Yes Medications given in 5ml increments after negative aspiration: Marcaine %: 0.25 mL: 30 and Exparel mL: 10 Patient tolerated procedure well: Yes Block Charges Block Charge (with Pro Fee): TAP Bilateral Use of Ultrasound Machine for Block: Yes- US Guidance/pain block
[2025-04-17] MEDS: LOPERAMIDE HCL 2 MG CAPSULE 4 MG PO (00:06)
[2025-04-17 05:18] LABS: Hematocrit* 30.0 % (33.0-51.0); Hemoglobin* 10.3 gm/dL (12.0-16.0); Immature Granulocytes Pct Auto 0.5 %; Mean Corpuscular HGB Conc 34 gm/dL (32-36); Mean Corpuscular Hemoglobin 31 pg (26-34); Mean Corpuscular Volume 91 fL (80-100); RDW Coefficient of Variation % 12.0 % (11.5-15.5); Red Blood Count* 3.29 m/uL (4.00-5.20); White Blood Count* 19.39 K/uL (4.50-11.00)
[2025-04-17 05:21] LABS: Immature Granulocytes Abs Auto 0.10 K/uL (0.00-0.30); Lymphocytes Absolute Auto 1.00 K/uL (0.90-2.90); Slide Review Reflex No
[2025-04-17 05:32] LABS: Blood Urea Nitrogen* 6 mg/dL (5-24); Creatinine* 0.6 mg/dL (0.5-1.5); Est. Creatinine Clearance* 124.49; Estimated Glomerular Filt Rate 125 ml/min
[2025-04-17 05:33] LABS: Alanine Aminotransferase* 15 U/L (4-35); Aspartate Amino Transferase* 31 U/L (12-35)
--- NOTE | 2025-04-17 07:33 | P.OBPN_ITS ---
OB - PN:Subj Subjective Date Seen: 04/17/25 Narrative: Velvet is a 30 y.o. who was admitted to [facility] for induction of labor due to new diagnosis of preeclampsia.? She had an uncomplicated primary for failure to descend after failed vacuum .? ? The patient feels well.? The pain is well controlled with current medications.? She has no new complaints.? She is breast feeding and reports things are going well.? the patient has done well.? Vitals have been stable.? She has remained afebrile.? Has a good appetite, is tolerating a general diet.? She is voiding without difficulty.? She is passing gas and has not yet had a bowel movement.? She is ambulating and denies any dizziness.? Has Small amount of rubra lochia.? OB - PN: Obj Exam Physical Exam: Vital signs: Temp Pulse Resp BP Pulse Ox O2 Del Method 97.8 F 72 16 117/70 96 Room Air 04/17/25 05:18 04/17/25 05:18 04/17/25 05:18 04/17/25 05:18 04/17/25 05:18 04/17/25 05:18 Narrative: GENERAL APPEARANCE:? normal affect, alert, no distress MOOD:? appropriate CHEST:? clear to auscultation HEART:? regular rate and rhythm ABDOMEN:? soft, non-tender the uterine fundus is firm At Umbilicus, Midline and is appropriate for the stage of recovery. PERINEUM:? mild edema of the perineum, intact. EXTREMITIES:? normal and 1+ edema Incision: dressing clean dry intact OB - PN: Obj Data Labs Labs: Laboratory Results - last 24 hr 04/17/25 05:05 WBC 19.39 H RBC 3.29 L Hgb 10.3 L Hct 30.0 L MCV 91 MCH 31 MCHC 34 RDW Coeff of Marco A 12.0 Plt Count 155 Neut % (Auto) 90.3 H Lymph % (Auto) 5.4 L [place] % (Auto) 3.7 Eos % (Auto) 0.0 Baso % (Auto) 0.1 Neut # (Auto) 17.50 H Lymph # (Auto) 1.00 [place] # (Auto) 0.70 Eos # (Auto) 0.00 Baso # (Auto) 0.00 Abs Immat Gran (auto) 0.10 Imm/Tot Granulo (auto) 0.5 BUN 6 Creatinine 0.6 Estimated Creat Clear 124.49 Estimated GFR 125 AST 31 ALT 15 OB - PN: A/P Delivery Assessment and Plan (1) Preeclampsia: Status: Acute (2) Transaminitis: Status: Acute (3) care following delivery: Status: Acute (4) Status post delivery: Status: Acute (5) Lactating mother: Status: Acute Plan day: 1 Plan: routine care Comments: Assessment/Plan?G 2 P 1 status post uncomplicated primary .? ?? 1.? Continue route PP cares? 2.? .? May see if desired? 3.? Anticipate discharge home tomorrow or the following day per pt preference? 4. Normal preeclampsia labs and blood pressures, continue monitioring per protocol. Repeat labs not indicated at this time.
[2025-04-18 00:49] VITALS: BP 110/65; PULSE 78; RESP 17
[2025-04-18 04:25] VITALS: BP 106/63; PULSE 54; RESP 17; TEMP 36.5; O2SAT 98
[2025-04-18] MEDS: ACETAMINOPHEN 500 MG TABLET 1000 MG PO ×2 (04:31→14:31)
--- NOTE | 2025-04-18 08:31 | PM.OBPNVD1 ---
OB - PN:Subj Subjective Time Seen by Provider: 08:00 Date Seen: 04/18/25 Patient comments OB post-: pain well controlled, tolerating diet and flatus present status: and doing well Narrative: Velvet is 30 year old who came in for IOL for pre-eclampsia at 37 weeks. She ended up having a primary for failure to decend and failed vacuum. She is disappointed but understands reasoning. She is doing well now. Sitting in bed nursing baby. She did share about his lip tie which Peds will assess today. Nipples are sore but intact. She can hear swallowing. Pain controlled with Toradol/ ibuprofen now and Tylenol. Would like to avoid oxycodone but will request if she feels she needs it. Voiding without problem and passing gas. No large blood clots or saturating pads. Scant bleeding. No s/s of pre-eclampsia. One mildly elevated blood pressure . She would like to discharge today r/t tired of being in the hospital but may stay for extra support. Encouraged to stay to monitor blood pressures and for support. Can check back later today. LAUREN Bethea OB - PN: Obj Exam Physical Exam: Vital signs: Temp Pulse Resp BP Pulse Ox O2 Del Method 97.7 F 54 L 17 106/63 98 Room Air 04/18/25 04:25 04/18/25 04:25 04/18/25 04:25 04/18/25 04:25 04/18/25 04:25 04/18/25 04:25 Narrative: Constitutional: no acute distress Incision: low transverse incision with surgical glue, CDI, no erythema, no bruising Abdomen: soft, uterine fundus firm at 1cm below umbilicus. Appropriate for this stage of healing Extremities: full sensation, trace edema Cardiovascular: regular heart rate and rhythm Respiratory: no labored breathing, lung sounds clear to auscultation OB - PN: Obj Data Labs Labs: Laboratory Results - last 24 hr 04/15/25 17:41 RPR Screen Non Reactive OB - PN: A/P Delivery Assessment and Plan (1) Preeclampsia: Status: Acute (2) Transaminitis: Status: Acute (3) care following delivery: Status: Acute (4) Lactating mother: Status: Acute Plan day 2 continue to monitor BP and assess for s/s pre-eclampsia. Patient told to report any symptoms. Plan day: 2 Plan: routine care
[2025-04-18 08:45] VITALS: BP 142/83; PULSE 81; RESP 17; TEMP 36.7; O2SAT 95
[2025-04-18] MEDS: DOCUSATE SODIUM 100 MG CAPSULE PO (09:25)
[2025-04-18] MEDS: IBUPROFEN 600 MG TABLET PO (10:16)
[2025-04-18 13:00] VITALS: BP 132/77; PULSE 79; RESP 18; TEMP 36.7; O2SAT 95
--- NOTE | 2025-04-18 15:28 | P.DS_ITS ---
DS: Providers Provider Time Seen by Provider: 15:20 Date Seen: 04/18/25 Date of admission: 04/15/25 17:29 Primary care physician: Not a Local Provider Admitting Clinician: Anna Pittman MD Attending Physician on discharge: Kristi Caraballo CNM Date of Discharge: 04/18/25 DS: Diagnosis Discharge Diagnosis (1) care following delivery: Status: Acute (2) Preeclampsia: Status: Acute (3) Lactating mother: Status: Acute Exam Narrative: Exam Narrative: Constitutional: no acute distress Incision: low transverse incision with surgical glue, CDI, no erythema, no bruising Abdomen: soft, uterine fundus firm at 1cm below umbilicus. Appropriate for this stage of healing Extremities: full sensation, trace edema Cardiovascular: regular heart rate and rhythm Respiratory: no labored breathing, lung sounds clear to auscultation Mood: appropriate, calm, and cooperative Const: Vital Signs, click to edit/add: Vital Signs - 24 hr 04/17/25 17:00 04/17/25 21:00 04/18/25 00:49 Temperature 98.0 F 97.9 F Pulse Rate [Pulse Oximeter] 71 73 78 Respiratory Rate 18 18 17 Blood Pressure [Le ft Arm] 114/64 128/78 110/65 Pulse Oximetry 97 98 Oxygen Delivery Me thod Room Air Room Air Room Air 04/18/25 04:25 04/18/25 08:45 04/18/25 13:00 Temperature 97.7 F 98.1 F 98.0 F Pulse Rate [Pulse Oximeter] 54 L 81 79 Respiratory Rate 17 17 18 Blood Pressure [Le ft Arm] 106/63 142/83 H 132/77 Pulse Oximetry 98 95 95 Oxygen Delivery Me thod Room Air Room Air Room Air Documenting provider has reviewed patient's vital signs: yes OB - DS: Summary Hospital Course Hospital Course: Velvet is 30 year old who came in for IOL for pre-eclampsia at 37 weeks. She ended up having a primary for failure to descend and failed vacuum. was uncomplicated. She is disappointed but understands reasoning. She delivered a viable male . She is doing well now. Sitting in bed nursing baby. She did share about his lip tie which Peds will assess today. Nipples are sore but intact. She can hear swallowing. Pain controlled with Toradol/ ibuprofen now and Tylenol. Would like to avoid oxycodone but will request if she feels she needs it. Voiding without problem and passing gas. No large blood clots or saturating pads. Scant bleeding. No s/s of pre-eclampsia. One mildly elevated blood pressure . She would like to discharge today r/t tired of being in the hospital. We recommended she consider staying until tomorrow given her blood pressures today. While still in the normal range they are higher than they had been. Reviewed the risk for readmission and what that would look like. She is aware and would still like to discharge. Knows s/s of pre-eclampsia and will monitor BP twice daily at home. LAUREN Bethea Peripartum Data Infant delivery method: Primary C/S; Labored Laceration description: None Episiotomy description: None Procedures: Procedures Operation Date: 04/16/25 22:15 Actual Procedure Side Surgeon p Primary Low Transverse Delivery Starla Llanos MD complications: none [place] Gender: Male Status at Discharge Functional status at discharge: independent ambulation Overall status at discharge: patient is progressing back to baseline Time Spent with Patient Time attestation: Total time spent providing and/or coordinating discharge services: Time spent: Less than 30 minutes Discharge Plan Discharge Disposition: Home, Self-Care Date of Admission: 04/15/25 17:29 Attending Provider on Discharge: Kristi Caraballo Primary Care Provider: Provider,Not a Local Condition: Stable Anticipated Discharge Date/Time: 04/18/25 16:00 Discharge Medications: New docusate sodium 100 mg Capsule 100 mg PO DAILY Qty: 120 0RF Rx Instructions: Take 1-2 tablets daily as needed for constipation. Continued DHA 200 mg capsule 200 mg PO DAILY Discontinued aspirin 81 mg tablet 81 mg PO QDAY Discharge Orders: Discharge Order (Routine); Ordered 04/18/25 Ordered By: Kristi Caraballo Patient Education: Bupivacaine Liposome (By injection), OB Over the Counter Medication Information, OB /Breast Feeding Additional Instructions: Discharge instructions were reviewed with the patient including signs and symptoms of infection and home going medications Lifting Restrictions: 20 pounds for 6 weeks No not submerge incision under water X 2 weeks? Nothing vaginally for 6 weeks: no tampons or intercourse Do not drive while taking narcotic pain medication(s) Off Work or School for 8 weeks Symptoms to report to doctor: * Bleeding that saturates more than one pad per hour * Passing clots larger than the size of a golf ball * Pain not relieved by prescribed medication * Fever above 100.4 degrees Fahrenheit * A foul vaginal odor * Difficulty in emotions, mood, and functions * Thoughts of hurting yourself and/or * Painful, reddened area in your breast * Any drainage, redness, or tenderness in your IV/epidural site * Severe headache that doesn't improve after taking medications * Changes in vision, including temporary loss of vision, blurred vision, and/or light sensitivity * Upper abdominal pain (usually under ribs on the right side) * Decrease in urination or painful, frequent urinating * Chest pain * Shortness of breath * Tenderness or pain with redness and/swelling in the calf(s) of your leg [facility] for [facility] BP check?Tuesday04/22/25 Call with BP greater than or equal to 160/110 1 week incision check 2-week visit: incision check, discuss infant feeding concerns, review control options and screen for anxiety/depression. 6-week visit for an annual exam. consultation services are available to all mothers and babies for the first year after delivery.? To make an appointment, please call [phone]. Activity Level: No strenuous activity and Light activity Discharge Diet: Regular Follow Up Appointments: [facility] [Provider Group] Provider,Not a Local [Primary Care Provider, Family Practice] Forms: [employer] Info Instructions
[2025-04-18 15:45] VITALS: BP 137/78; PULSE 70; RESP 16; TEMP 36.7; O2SAT 97
== END 2025-04-18 17:17 | disposition home or self-care (01) | DRG 788 ==
PROVIDERS: Admitting Provider Obstetrics & Gynecology; Visit Provider Obstetrics & Gynecology
PROC: 10D00Z1 Extraction of Products of Conception, Low, Open Approach (ICD-10-PCS; CPT 59514; principal; 2025-04-16 22:15)
DX: O14.04 Mild to moderate pre-eclampsia, complicating childbirth (principal); O32.4XX0 Maternal care for high head at term, not applicable or unspecified; O66.5 Attempted application of vacuum extractor and forceps; R74.01 Elevation of levels of liver transaminase levels; G89.18 Other acute postprocedural pain; Z3A.37 37 weeks gestation of pregnancy; Z37.0 Single live birth
CPT/HCPCS: 01961; 01967; 01968; 36415; 64488; 76942; 82565; 84450; 84460; 84520; 85025; 86592; 86850; 86900; 86901; 88307; 99140; A4314; A9270; J0456; J0665; J0666; J0690; J1100; J1885; J2371; J2405; J2590; J2795; J3010; J7050; J7120

== ENCOUNTER 2025-05-07 09:17 | Outpatient (CLI) | payer OTHER, SELFPAY | END 2025-05-07 09:18 | disposition home or self-care (01) | PROVIDERS: Visit Provider Physician Assistant | DX: O14.93 Unspecified pre-eclampsia, third trimester (principal) | CPT/HCPCS: 82565; 84450; 84460; 84520 ==

== ENCOUNTER 2025-05-07 09:33 | Outpatient (CLI) | payer OTHER, SELFPAY ==
--- NOTE | 2025-05-07 11:01 | P.LACCB_ITS ---
Consult Note - Mom Date of Visit Date of visit: 05/07/25 Reason for consultation: Assistance Needed and Other (f/u tongue tie and lip tie release and nipple pain) Visit Code: Visit Patient's Information Phone number: [phone] : 2 Para: 1 Allergies Sulfa (Sulfonamide Antibiotics) Allergy (Severe, Verified 05/07/25 08:50) Anaphylaxis Mother's Medical History: Medical History (Updated 04/20/25 @ 00:00 by Background Dajanina) Spontaneous with sepsis ?O03.87 - Sepsis following complete or unspecified spontaneous (ICD- 10) History of abnormal cervical Pap smear ?Z87.42 - Personal history of other diseases of the female genital tract (ICD-10) Work Plans: return to work Sep/Oct Delivery Information Delivery type: Primary C/S; Non-Labored Gestational Age: 37 Gestational Weight For Age: AGA Weight: 3.19 kg Discharge Weight: 3.012 kg Percentage weight loss: 5.57 Baby's Information Baby's Age at Visit: 21 days Baby's Provider or Clinic: NG+C Jaundice: No Past Experience Past Experience: No Current Frequency of Day Feedings: 2.5-3 hrs Frequency of Night Feedings: 3 hrs Both Breasts: Yes Suck: strong Latch: still painful on the right side, left is better Length of Time: 10 min ea side Goals: taking it as it comes Pumping Pumping: No Supplementing EBM Supplement: No Formula Supplement: No Baby Elimination Number of Wet Diapers a Day: ea feeding Number of BM a Day: 3-4/day; yellow, seedy Breast/Nipple Condition Breast Information: Breasts are symmetrical with rounded lower quadrants, intramammary distance is less than 1.5 inches. Slight erythema of her right nipple, no cracks, blisters, bleeding. No erythema of the bresat. Nipples are supple, everted prior to feeding. Nipples measure 15-16mm Breast Shape: Round Engorgement: No Maternal Nipple Condition - Left: Common Nipple Maternal Nipple Condition - Right: Common Nipple Sore Nipples: Yes Interventions for Sore Nipples: Lansinoh/Nipple Cream Baby Assessment Skin: Normal Tongue/frenulum: History of frenotomy Palate: Average Lips: Relaxed and Other (history of lip tie lasering) Jaw Alignment: Symmetrical Mucosa: [place], moist Onsite Observation Pre-Feed weight: 3.882 kg Post-Feed weight: 3.96 kg Milk Transferred (mL): 78 Position: Cross cradle Attachment/latch-on achieved: Easily Suck pattern: Suck burst and normal rest Swallow: Audible, consistent and Gulping Behavior following feed: Alert, content Pre-Nursing Left Nipple: Within Normal Limits Pre-Nursing Right Nipple: Redness Post-Nursing Left Nipple: Within Normal Limits Post-Nursing Right Nipple: Redness and Creased/Beveled (slight creasing at top of nipple) Assessments/Interventions Assessments/Interventions: Worked with mom; reviewed asymmetrical latch technique for a wide, deeper latch and mom reports increased comfort with this, especially on her right side. Day also needs help getting bottom lip flanged out to maintain deeper latch; showed mom how to adjust this if only slight fix is needed or to relatch if still uncomfortable. Discussed a few exercises to help baby open mouth wider prior to coming to the breast and toothbrushing to help with him learning his tongue movement post frenotomy. Day easily transferred 78 ml of milk in 20 minutes of feeding. Discussed pumping one time/day as desired to be able to freeze some milk, and pumping to add in a bottle/day in the next week or so. Reviewed pump settings for mom for her Spectra pump. Education provided: Asymmetric latch technique for wide/deep latch to increase milk, Transfer for baby and increase comfort for mom, Supply/demand nature of milk supply, Alternative feeding methods (SNS, cup, finger feeding, bottling), Pumping for milk management and Milk collection, storage Follow-Up Suggested follow up: Appointment as needed Time Spent Time spent with patient (min): 75 Meds Home Medications and Allergies Home Medications ?Medication ?Instructions ?Recorded ?Confirmed ?Type docosahexaenoic acid 200 mg 200 mg PO DAILY 09/21/24 1 07/07/24 History capsule ( DHA) Allergies Allergy/AdvReac Type Severity Reaction Status Date / Time Sulfa (Sulfonamide Allergy Severe Anaphylaxis Verified 05/07/25 08:50 Antibiotics)
== END 2025-05-07 09:34 | disposition home or self-care (01) ==
LOC: OB LAC 09:34
PROVIDERS: Visit Provider Obstetrics & Gynecology
DX: Z39.1 Encounter for care and examination of lactating mother (principal)
CPT/HCPCS: G0463